=== PATIENT | female | born 1960 | race Caucasian/White ===

== ENCOUNTER → 2016-04-05 | Outpatient (RCR) | payer SELFPAY | LOC: M PT 03-21 13:42 | PROVIDERS: ATTEND Orthopaedic Surgery | DX: S82.65XD Nondisplaced fracture of lateral malleolus of left fibula, subsequent encounter for closed fracture with routine healing (principal); X58.XXXD Exposure to other specified factors, subsequent encounter; Y93.9 Activity, unspecified; Y92.9 Unspecified place or not applicable; Y99.8 Other external cause status | CPT/HCPCS: 97010; 97110; 97140; 97161; G0283 ==

== ENCOUNTER → 2016-06-07 | Outpatient (REF) | payer OTHER ==
[2016-06-07 13:33] LABS: BASO % 0.4 % (0.0-1.0); EOS # 0.4 K/mm3 (0.0-0.50); EOS % 3.2 % (0.0-3.0); LARGE UNSTAINED CELL # 0.3 K/mm3 (0.0-0.4); LARGE UNSTAINED CELL % 2.5 % (0.0-4.0); LYMPH # 1.8 K/mm3 (1.5-4.5); LYMPH % 16.2 % (24.0-44.0); MEAN CORPUSCULAR HEMOGLOBIN 30.6 pg (27.0-33.0); MEAN CORPUSCULAR HGB CONC 33.5 g/dl (32.0-36.5); MEAN CORPUSCULAR VOLUME 91.5 fl (80.0-96.0); MONO # 0.6 K/mm3 (0.0-0.8); MONO % 5.1 % (0.0-5.0); NEUTROPHILS # 7.9 K/mm3 (1.8-7.7); NEUTROPHILS % 72.7 % (36.0-66.0); PLATELET COUNT, AUTOMATED 335 k/mm3 (150-450); RED CELL DISTRIBUTION WIDTH 13.1 % (11.5-14.5); WHITE BLOOD COUNT 10.9 K/mm3 (4.0-10.0)
[2016-06-07 14:01] LABS: ALBUMIN/GLOBULIN RATIO 1.03 (1.00-1.93); ALKALINE PHOSPHATASE 94 U/L (45-117); ALT/SGPT 15 U/L (12-78); ANION GAP 7 MEQ/L (8-16); AST/SGOT 14 U/L (15-37); BILIRUBIN,TOTAL 0.3 MG/DL (0.2-1.0); BLOOD UREA NITROGEN 12 MG/DL (7-18); CALCIUM LEVEL 9.4 MG/DL (8.5-10.1); CARBON DIOXIDE LEVEL 30 MEQ/L (21-32); CHLORIDE LEVEL 97 MEQ/L (98-107); CREATININE FOR GFR 0.92 MG/DL (0.55-1.02); FERRITIN 63 NG/ML (8-252); FREE T4 0.93 NG/DL (0.76-1.46); GLOMERULAR FILTRATION RATE > 60.0 (>51); GLUCOSE, FASTING 106 MG/DL (70-105); PERCENT SATURATION 11.3 % (13.2-37.4); POTASSIUM SERUM 4.3 MEQ/L (3.5-5.1); SODIUM LEVEL 134 MEQ/L (136-145); TOTAL IRON BINDING CAPACITY 381 UG/DL (250-450); TOTAL PROTEIN 7.9 GM/DL (6.4-8.2)
== END ==
LOC: M SFHCPLAZ 09:59
PROVIDERS: ATTEND Family Medicine
DX: N18.2 Chronic kidney disease, stage 2 (mild) (principal); E03.9 Hypothyroidism, unspecified; R73.01 Impaired fasting glucose

== ENCOUNTER → 2016-07-05 | Outpatient (CLI) | payer OTHER ==
--- NOTE | 2016-07-05 13:17 | REPMRS ---
Patient History The patient states she has not had a clinical breast exam in over a year. Patient is postmenopausal. Family history of breast cancer in maternal grandmother at age 50 or over and breast cancer in paternal grandmother at age 50 or over. Digital Woman Screen Mammo: July 05, 2016 - Exam #: [id number] Bilateral CC and MLO view(s) were taken. Technologist: Ayah Helton, Technologist Prior study comparison: March 24, 2014, digital woman screen mammo performed at [facility]. July 04, 2012, digital woman screen mammo performed at [facility]. FINDINGS: There are scattered fibroglandular densities. There has been no change in the appearance of the mammogram from the prior studies. There is a mild amount of residual fibroglandular tissue which is fairly symmetric. There is no interval development of dominant mass, architectural distortion, or clustered microcalcification suggestive of malignancy. ASSESSMENT: BI-RADS/ACR category 1 mammogram. Negative. Recommendation Routine screening mammogram in 1 year (for women over age 40). This mammogram was interpreted with the aid of an FDA-approved computer-aided dectection system. Electronically Signed By: Dean Herrera MD 07/05/16 [id number]
== END ==
LOC: M WHC 10:04
PROVIDERS: ATTEND Family Medicine
DX: Z12.31 Encounter for screening mammogram for malignant neoplasm of breast (principal)

== ENCOUNTER → 2016-07-30 | Outpatient (CLI) | payer OTHER ==
--- NOTE | 2016-07-31 07:06 | REP ---
RIGHT KNEE COMPLETE: 07/30/2016. COMPARISON: Bilateral knee 10/25/2011. CLINICAL HISTORY: Acute pain. FINDINGS: Five views were provided. There are spurs in the tibial spines, medial and lateral joint margins without joint space narrowing. [place] view shows slight narrowing at the patellofemoral joint. There is soft tissue calcification superficially in the popliteal fossa unrelated to the joint. There is no fracture, loose body or osteochondral lesion. IMPRESSION: 1. There are tricompartment osteoarthritic changes with some narrowing of the patellofemoral joint but no definite joint effusion, fracture, loose body or other acute finding. Signed by Howard Pedro MD 07/31/2016 09:29 A
== END ==
LOC: M LRY 14:53
PROVIDERS: ATTEND Physician Assistant
DX: M25.561 Pain in right knee (principal); M17.11 Unilateral primary osteoarthritis, right knee

== ENCOUNTER → 2017-06-21 | Outpatient (REF) | payer OTHER | LOC: M SFHCLERA 14:44 | DX: J00 Acute nasopharyngitis [common cold] (principal) ==

== ENCOUNTER → 2017-06-28 | Outpatient (CLI) | payer OTHER | LOC: M LRY 13:00 | DX: R06.02 Shortness of breath (principal) | CPT/HCPCS: 71046 ==

== ENCOUNTER → 2017-07-02 | Outpatient (REF) | payer OTHER | LOC: M SFHCLERA 10:47 | DX: R30.0 Dysuria (principal) ==

== ENCOUNTER → 2017-08-22 | Outpatient (CLI) | payer OTHER ==
[2017-08-22 17:00] LABS: BASO % 0.5 % (0.0-1.0); EOS # 0.2 10^3/uL (0.0-0.50); EOS % 2.9 % (0.0-3.0); HEMATOCRIT 37.7 % (36.0-47.0); HEMOGLOBIN 12.4 g/dl (12.0-15.5); IMMATURE GRANULOCYTE % 0.3 % (0-3.0); LYMPH # 2.1 10^3/uL (1.5-4.5); MEAN CORPUSCULAR HEMOGLOBIN 28.6 pg (27.0-33.0); MEAN CORPUSCULAR HGB CONC 32.9 g/dl (32.0-36.5); MEAN CORPUSCULAR VOLUME 86.9 fl (80.0-96.0); MONO # 0.5 10^3/uL (0.0-0.8); MONO % 7.5 % (0.0-5.0); NEUTROPHILS # 3.5 10^3/uL (1.8-7.7); NEUTROPHILS % 55.8 % (36.0-66.0); PLATELET COUNT, AUTOMATED 317 10^3/uL (150-450); RED BLOOD COUNT 4.34 10^6/uL (4.00-5.40); RED CELL DISTRIBUTION WIDTH 13.2 % (11.5-14.5); RETIC HEMOGLOBIN EQUIVALENT 32.8 pg (24-36); RETICULOCYTE # 64.7 10^9/L (17-77); RETICULOCYTE % 1.5 % (0.5-1.5); WHITE BLOOD COUNT 6.2 10^3/uL (4.0-10.0)
[2017-08-22 17:33] LABS: ESTIMATED AVERAGE GLUCOSE 137 MG/DL (60-110); HEMOGLOBIN A1c 6.4 %; PTH INTACT 54.8 PG/ML (18.5-88.0); TOTAL 25(OH) VITAMIN D 70.6 NG/ML (30.0-100.0); VITAMIN B12 LEVEL > 2000 PG/ML (247-911)
[2017-08-22 17:36] LABS: ALBUMIN 3.5 GM/DL (3.2-5.2); ALKALINE PHOSPHATASE 81 U/L (45-117); ALT/SGPT 18 U/L (12-78); ANION GAP 7 MEQ/L (8-16); AST/SGOT 15 U/L (7-37); BILIRUBIN,TOTAL 0.3 MG/DL (0.2-1.0); BLOOD UREA NITROGEN 12 MG/DL (7-18); C REACTIVE PROTEIN QUANTITATIV 0.69 MG/DL (0.00-0.30); CALCIUM LEVEL 8.9 MG/DL (8.5-10.1); CARBON DIOXIDE LEVEL 29 MEQ/L (21-32); CHLORIDE LEVEL 101 MEQ/L (98-107); CHOLESTEROL LEVEL 144 MG/DL (<200); CHOLESTEROL RISK RATIO 3.272 (<5); CPK CREATINE PHOSPHOKINASE 106 U/L (26-192); CREATININE FOR GFR 0.88 MG/DL (0.55-1.30); FREE T4 1.29 NG/DL (0.76-1.46); GLOMERULAR FILTRATION RATE > 60.0 (>51); GLUCOSE, FASTING 97 MG/DL (70-100); HDL CHOLESTEROL 44 MG/DL (>40); LDL CHOLESTEROL 76.6 MG/DL (<100); NON-HDL-C 100 MG/DL; SODIUM LEVEL 137 MEQ/L (136-145); THYROID STIMULATING HORMONE 0.222 uIU/ML (0.358-3.740); TOTAL PROTEIN 7.4 GM/DL (6.4-8.2); TRIGLYCERIDES LEVEL 117 MG/DL (<150)
[2017-08-25 00:37] LABS: INSULIN LEVEL 28.2 uIU/mL (2.6-24.9)
== END ==
LOC: M WUC 13:26
DX: E53.8 Deficiency of other specified B group vitamins (principal); E78.5 Hyperlipidemia, unspecified; E03.9 Hypothyroidism, unspecified; R73.01 Impaired fasting glucose; E55.9 Vitamin D deficiency, unspecified
CPT/HCPCS: 82550

== ENCOUNTER → 2018-04-06 | Outpatient (CLI) | payer OTHER ==
--- NOTE | 2018-04-06 14:41 | REP ---
CERVICAL SPINE EIGHT VIEWS: HISTORY: Spondylosis. There is no acute fracture. The C3-4 through C5-6 intervertebral discs are decreased in height consistent with disc degeneration. Osteophytes are present on C5 and C6. The neural foramina are patent. There are 2 mm of anterior subluxation of C4 on C5. This is unchanged with flexion and extension. There are 2 mm of anterior subluxation of C3 on C4 with flexion. This is not seen in neutral or extension radiographs. IMPRESSION: Degenerative change as described above. Electronically Signed by Jhonathan Torres MD 04/06/2018 02:44 P
[2018-04-06 16:50] LABS: AMORPHOUS SEDIMENT SMALL (NEGATIVE); APPEARANCE, URINE HAZY (CLEAR); BACTERIA, URINE AUTO NEGATIVE (NEGATIVE); BILIRUBIN, URINE AUTO NEGATIVE (NEGATIVE); BLOOD, URINE BLOOD NEGATIVE (NEGATIVE); COLOR, URINE YELLOW (YELLOW); GLUCOSE, URINE (UA) AUTO NEGATIVE (NEGATIVE); KETONE, URINE AUTO NEGATIVE (NEGATIVE); LEUKOCYTE ESTERASE, URINE AUTO 3+ (NEGATIVE); NITRITE, URINE AUTO NEGATIVE (NEGATIVE); PROTEIN, URINE AUTO NEGATIVE (NEGATIVE); RBC, URINE AUTO 2 /HPF (0-3); SPECIFIC GRAVITY URINE AUTO 1.013 (1.002-1.035); SQUAMOUS EPITHELIAL CELL UR AU 7 /HPF (0-6); TRANSITIONAL EPITHELIAL AUTO 3 /HPF; UROBILINOGEN, URINE AUTO 0.2 mg/dL (0.0-2.0); WBC, URINE AUTO 92 /HPF (0-3)
[2018-04-06 16:52] LABS: BASO % 0.6 % (0.0-1.0); EOS # 0.2 10^3/uL (0.0-0.50); EOS % 3.4 % (0.0-3.0); HEMOGLOBIN 12.9 g/dl (12.0-15.5); LYMPH % 30.7 % (24.0-44.0); MEAN CORPUSCULAR HEMOGLOBIN 29.1 pg (27.0-33.0); MEAN CORPUSCULAR HGB CONC 33.1 g/dl (32.0-36.5); MEAN CORPUSCULAR VOLUME 87.8 fl (80.0-96.0); MONO # 0.5 10^3/uL (0.0-0.8); MONO % 7.2 % (0.0-5.0); NEUTROPHILS # 3.7 10^3/uL (1.8-7.7); NEUTROPHILS % 57.8 % (36.0-66.0); PLATELET COUNT, AUTOMATED 352 10^3/uL (150-450); RED BLOOD COUNT 4.44 10^6/uL (4.00-5.40); WHITE BLOOD COUNT 6.4 10^3/uL (4.0-10.0)
[2018-04-06 17:09] LABS: HEMOGLOBIN A1c 6.3 %
[2018-04-06 17:20] LABS: CREATININE, URINE 79.1 MG/DL; MALB URINE SIEMENS 24.5 MG/L; MAU/CREAT RATIO 30.9 MCG/MG (0.0-30.0)
[2018-04-06 17:29] LABS: ALBUMIN 3.7 GM/DL (3.2-5.2); BILIRUBIN,TOTAL 0.3 MG/DL (0.2-1.0); CALCIUM LEVEL 8.9 MG/DL (8.8-10.2); CREATININE FOR GFR 1.02 MG/DL (0.55-1.30); FREE T4 1.08 NG/DL (0.76-1.46); GLOMERULAR FILTRATION RATE 58.8 (>45); MAGNESIUM LEVEL 2.3 MG/DL (1.8-2.4); POTASSIUM SERUM 4.8 MEQ/L (3.5-5.1); THYROID STIMULATING HORMONE 2.12 uIU/ML (0.358-3.740); TOTAL PROTEIN 7.4 GM/DL (6.4-8.2)
[2018-04-11 14:15] LABS: CODEINE CONFIRM >10000 ng/mL (Cutoff=100); CODEINE, URINE Positive (.); CREATININE, URINE 79.6 mg/dL (20.0-300.0); HYDROCODONE, URINE Negative (Cutoff=100); HYDROMORPHONE, URINE Negative (Cutoff=100); MORPHINE CONFIRM, URINE 1261 ng/mL (Cutoff=100); MORPHINE, URINE Positive (.); OPIATES, URINE Positive ng/mL (Cutoff=300)
== END ==
LOC: M WUC 11:53
PROVIDERS: ATTEND Family Medicine
DX: M50.31 Other cervical disc degeneration, high cervical region (principal); M50.322 Other cervical disc degeneration at C5-C6 level; M25.78 Osteophyte, vertebrae; D50.9 Iron deficiency anemia, unspecified; I10 Essential (primary) hypertension; E03.9 Hypothyroidism, unspecified; R73.01 Impaired fasting glucose; M47.22 Other spondylosis with radiculopathy, cervical region

== ENCOUNTER → 2018-06-11 | Outpatient (CLI) | payer OTHER ==
--- NOTE | 2018-06-11 13:42 | REP ---
MRI CERVICAL SPINE WITHOUT CONTRAST: HISTORY: Cervical spondylosis. Radiculopathy. Comparison cervical spine radiographs are from April 06, 2018. TECHNIQUE: Sagittal and axial T1- and T2-weighted scans are acquired in the usual fashion with and without fat saturation. Sequences include spin echo, turbo spin echo, and STIR imaging sequences. MRI FINDINGS: There is straightening of the normal cervical lordosis. There is a subtle degenerative 2 mm spondylolisthesis at C4-5. Degenerative disc disease is seen at this level as well as at C5-6 and C6-7. Cortical and medullary bone signal intensity are normal. Vertebral body heights are preserved. Alignment is otherwise normal. Cervical cord is normal in coarse, caliber and signal intensity on T1- and T2-weighted scans. There is no visible extra vertebral abnormality. Axial and sagittal images taken at the C2-3 level demonstrate mild central disc bulging without the cord compression. No neural foraminal narrowing is seen. At C3-C4, there is no significant finding. At C4-5, there is 2 mm anterolisthesis due to degenerative disc narrowing. Mild disc bulging is seen without cord compression or central canal stenosis. No neural foraminal narrowing is seen. At C5-C6, there is broad-based central disc protrusion subtly flattening the ventral margin of the cervical cord. No central canal stenosis is seen. There is mild uncovertebral spurring on the left. At C5-6, there is mild diffuse disc bulging. Neural foramen are adequate no central canal stenosis seen. At C7-T1, there is no significant finding. IMPRESSION: Degenerative disc changes most pronounced at C4-5 and C5-6. At C5-6, there is a broad-based central disc protrusion flattening the ventral margin of the cord. At C4-5, there is a 2 mm spondylolisthesis due to degenerative disc disease. Electronically Signed by Arvin Silvestre MD 06/11/2018 02:33 P
== END ==
LOC: M RAD 11:03
PROVIDERS: ATTEND Nurse Practitioner Family
DX: M47.22 Other spondylosis with radiculopathy, cervical region (principal); M50.222 Other cervical disc displacement at C5-C6 level

== ENCOUNTER → 2018-09-05 | Outpatient (REF) | payer OTHER ==
[~2018-09-05] MED LIST: ACET-683 PO; ACET1TAB16 PO; AMIT75TA PO; AMLO10TA5 PO; GABA-1171 PO; HYDR25TAB PO; LEVO75TA4 PO; LINE1TAB6 PO; LISI40TA PO; ONDA4TAB6 PO; SIMVPOW2; SULF1TAB93 PO; VITA500045 PO; ZOCO80TA PO
== END ==
LOC: M SFHCPLAZ 15:50
PROVIDERS: ATTEND Nurse Practitioner Family
DX: L03.112 Cellulitis of left axilla (principal)

== ENCOUNTER 2018-09-06 22:10 | Emergency (ER) | payer OTHER ==
[~2018-09-06] VITALS: Ht 160 cm; Wt 104.1 kg
[2018-09-06] MEDS ORDERED: AMIT75TA PO (22:20)
[2018-09-06] MEDS ORDERED: LISI40TA PO (22:20)
[2018-09-06] MEDS ORDERED: HYDR25TAB PO (22:20)
[2018-09-06] MEDS ORDERED: SIMVPOW2 (22:20)
[2018-09-06] MEDS ORDERED: SULF1TAB93 PO (22:20)
[2018-09-06] MEDS ORDERED: AMLO10TA5 PO (22:20)
[2018-09-06] MEDS ORDERED: ACET1TAB16 PO (22:20)
[2018-09-06] MEDS ORDERED: VITA500045 PO (22:20)
[2018-09-06] MEDS ORDERED: GABA-1171 PO (22:20)
[2018-09-06] MEDS ORDERED: ACET-683 PO (22:20)
[2018-09-06] MEDS ORDERED: LEVO75TA4 PO (22:20)
[2018-09-07] MEDS ORDERED: METOCLOPRAMIDE INJ 10MG/2ML VIAL (J2765) IV ONE ×2 (00:30→02:00)
[2018-09-07] MEDS ORDERED: diphenhydrAMINE INJ 50MG/ML VIAL (J1200) IV ONE ×2 (00:30→02:00)
[2018-09-07] MEDS ORDERED: NS 1,000 ML IV ONE (00:30)
[2018-09-07] MEDS ORDERED: KETOROLAC 30 MG/ML VIAL (J1885) IV ONE (00:30)
[2018-09-07 00:42] LABS: BASO % 0.3 % (0.0-1.0); HEMATOCRIT 36.7 % (36.0-47.0); HEMOGLOBIN 12.5 g/dl (12.0-15.5); LYMPH # 0.5 10^3/uL (1.5-4.5); LYMPH % 4.6 % (24.0-44.0); MEAN CORPUSCULAR HEMOGLOBIN 29.1 pg (27.0-33.0); MEAN CORPUSCULAR HGB CONC 34.1 g/dl (32.0-36.5); MEAN CORPUSCULAR VOLUME 85.3 fl (80.0-96.0); MONO # 0.4 10^3/uL (0.0-0.8); NEUTROPHILS # 10.6 10^3/uL (1.8-7.7); NEUTROPHILS % 91.5 % (36.0-66.0); PLATELET COUNT, AUTOMATED 329 10^3/uL (150-450); WHITE BLOOD COUNT 11.6 10^3/uL (4.0-10.0)
[2018-09-07 01:06] LABS: ALBUMIN 3.4 GM/DL (3.2-5.2); BILIRUBIN,TOTAL 0.3 MG/DL (0.2-1.0); CALCIUM LEVEL 8.9 MG/DL (8.8-10.2); CREATININE FOR GFR 1.04 MG/DL (0.55-1.30); GLOMERULAR FILTRATION RATE 57.5 (>45); POTASSIUM SERUM 3.4 MEQ/L (3.5-5.1); TOTAL PROTEIN 7.6 GM/DL (6.4-8.2)
[2018-09-07] MEDS ORDERED: methylPREDNISolone INJ 125 MG/2 ML VIAL (J2930) IV ONE (02:00)
[2018-09-07] MEDS ORDERED: ONDA4TAB6 PO (04:21)
[2018-09-07 04:33] VITALS: BP 97/54
== END 2018-09-07 04:34 | disposition home or self-care (01) ==
LOC: M ED 22:10
DX: L73.2 Hidradenitis suppurativa (principal); G43.909 Migraine, unspecified, not intractable, without status migrainosus; I10 Essential (primary) hypertension; E03.9 Hypothyroidism, unspecified; Z79.899 Other long term (current) drug therapy; Z79.890 Hormone replacement therapy; Z87.891 Personal history of nicotine dependence
CPT/HCPCS: 80053; 83605; 85025; 87040; 96361; 96374; 96375; 96376; 99284; J1200; J1885; J2765; J2930

== ENCOUNTER 2018-09-10 11:07 | Inpatient (IN) | payer OTHER ==
[~2018-09-10] VITALS: Ht 160 cm; Wt 102.9 kg
[2018-09-10] MEDS: DIVALPROEX 500MG *ER* TAB PO SCH ×2 (09:00→20:49)
[~2018-09-10 11:07] MED LIST changes: -LINE1TAB6 PO; -ZOCO80TA PO
[2018-09-10 12:10] VITALS: BP 139/81
[2018-09-10] MEDS ORDERED: KETOROLAC 30 MG/ML VIAL (J1885) IV ONE (12:30)
[2018-09-10 12:32] LABS: HEMATOCRIT 39.6 % (36.0-47.0); HEMOGLOBIN 13.5 g/dl (12.0-15.5); MEAN CORPUSCULAR HEMOGLOBIN 29.3 pg (27.0-33.0); MEAN CORPUSCULAR HGB CONC 34.1 g/dl (32.0-36.5); MEAN CORPUSCULAR VOLUME 86.1 fl (80.0-96.0); PLATELET COUNT, AUTOMATED 335 10^3/uL (150-450); WHITE BLOOD COUNT 10.3 10^3/uL (4.0-10.0)
[2018-09-10] MEDS ORDERED: ZOCO80TA PO (12:33)
[2018-09-10] MEDS ORDERED: ONDA4TAB6 PO (12:33)
[2018-09-10 12:55] LABS: ALBUMIN 3.5 GM/DL (3.2-5.2); ALT/SGPT 49 U/L (12-78); BILIRUBIN,TOTAL 0.3 MG/DL (0.2-1.0); BLOOD UREA NITROGEN 14 MG/DL (7-18); CALCIUM LEVEL 9.1 MG/DL (8.8-10.2); CARBON DIOXIDE LEVEL 29 MEQ/L (21-32); CHLORIDE LEVEL 94 MEQ/L (98-107); CREATININE FOR GFR 1.14 MG/DL (0.55-1.30); GLOMERULAR FILTRATION RATE 51.8 (>45); GLUCOSE, FASTING 104 MG/DL (70-100); POTASSIUM SERUM 3.5 MEQ/L (3.5-5.1); SODIUM LEVEL 131 MEQ/L (136-145); TOTAL PROTEIN 7.9 GM/DL (6.4-8.2)
--- NOTE | 2018-09-10 13:47 | REP ---
CT HEAD WITHOUT CONTRAST: Migraine headache. There is no intraparenchymal hemorrhage, mass or midline shift. The ventricular system is normal in appearance. There is no extracerebral collection. The visualized sinuses are clear. IMPRESSION: There is no intracranial lesion. Electronically Signed by Jhonathan Torres MD 09/10/2018 02:00 P
--- NOTE | 2018-09-10 14:29 | PHACANCOPD ---
PHARMACY VANCOMYCIN DOSING Pt Demographics Demographics Patient Age:58 , Weight:103.200 , Gender: female Adjusted Body Weight Date: 09/10/18, Adjusted Body Weight: Kg Events Past 24 Hours Events Past 24 Hours: YES: Change in CrCl, Fever, Elevation in WBC; NO: Dialysis, Diuretic Therapy, Pending Diagnostics, Pending Procedures, Other Vancomycin Vancomycin Target Ranges: 10-20 mcg/ml Vancomycin Load Y/N: Yes Load Dose Date Time Vancomycin Load Dose: 2G Date: 09/10/18 Time: 1600 Vancomycin Dose Date: 09/10/18. Current Vancomycin Dose: Intermittent Dosing?: No Labs Labs Vital Signs Label Value Date Time Patient Temperature 99.3 degrees F 09/10/18 1210 Temperature Source Temporal 09/10/18 1210 Item Value Date Time White Blood Count 10.3 10^3/uL H 09/10/18 1218 Creatinine 1.14 MG/DL 09/10/18 1218 Micro Microbiology 09/10/18 Blood Culture, Received Pending Creatinine Clearance Date:09/10/18. Creatinine Clearance: . Assessment and Plan Maintaining Current Dose?: Yes Reason for dose change: No Dose Change Pharmacist Note Pharmacist Note Date: 09/10/18. Pharmacist note: Pt. is a 58 year old female who was recently seen for an abscess under her left axillae. She was prescribed bactrim and then discharged. Lab cultures from 09/05/18 have returned back as MRSA. Pt. has returned today as a direct admit to PCU. SCr is slightly elevated at 1.14, baseline Scr is ~0.9. This patient has not received vanco at our facility. I have loaded the patient with Vanco 2G IVx1 @1600 today followed by Vanco 1500mg IV Q18H. We will continue to monitor and adjust dose as needed. KIRILL TORRES [facility]ARMAC[facility] Sep 10, 2018 14:29
[2018-09-10 15:15] LABS: CK-MB VALUE MASS < 1.0 NG/ML (<3.6); CPK CREATINE PHOSPHOKINASE 64 U/L (26-192); MB/CK RELATIVE INDEX 1.56 (< OR =4); TROPONIN I < 0.02 NG/ML (< 0.10)
[2018-09-10 15:32] VITALS: BP 102/59
[2018-09-10] MEDS ORDERED: SLF 3 ML SYR IV PRN (16:00)
[2018-09-10] MEDS: VANCOMYCIN HCL 1,000 MG, VIAL MATE ADAPTER 1 EACH in D5W 250 ML IV SCH ×2 (16:05→17:41)
[2018-09-10] MEDS: METOCLOPRAMIDE 10 MG TAB PO SCH ×2 (16:05→21:27)
[2018-09-10] MEDS: ASPIRIN 81 MG ENTERIC TAB PO SCH (16:05)
[2018-09-10] MEDS: MORPHINE 4 MG/ML 1ML VIAL/SYRINGE (J2270) IV PRN ×2 (17:20→21:27)
[2018-09-10] MEDS: HumaLOG INSULIN (NovoLOG) PER UNIT SC SCH ×2 (17:26→20:48)
[2018-09-10 20:00] VITALS: BP 122/74
[2018-09-10] MEDS: DOCUSATE SODIUM 100 MG CAP PO SCH (20:49)
[2018-09-10] MEDS: SIMVASTATIN 40 MG TAB PO SCH (20:49)
[2018-09-10] MEDS: GABAPENTIN 100 MG CAP PO SCH (20:49)
[2018-09-10] MEDS: AMITRIPTYLINE 25 MG TAB PO SCH (20:49)
[2018-09-10] MEDS: SLF 3 ML SYR IV SCH (21:28)
[2018-09-10 23:59] VITALS: BP 101/59
[2018-09-11 04:00] VITALS: BP 104/61
[2018-09-11] MEDS: SLF 3 ML SYR IV SCH ×3 (05:31→20:55)
[2018-09-11] MEDS: LEVOTHYROXINE 75MCG TABLET (0.075MG) PO SCH (05:31)
[2018-09-11] MEDS: METOCLOPRAMIDE 10 MG TAB PO SCH ×3 (05:31→20:54)
[2018-09-11 06:39] LABS: HEMATOCRIT 34.1 % (36.0-47.0); HEMOGLOBIN 11.6 g/dl (12.0-15.5); MEAN CORPUSCULAR HEMOGLOBIN 28.5 pg (27.0-33.0); MEAN CORPUSCULAR VOLUME 83.8 fl (80.0-96.0); PLATELET COUNT, AUTOMATED 355 10^3/uL (150-450); RED BLOOD COUNT 4.07 10^6/uL (4.00-5.40); WHITE BLOOD COUNT 9.3 10^3/uL (4.0-10.0)
[2018-09-11 07:12] LABS: CALCIUM LEVEL 8.5 MG/DL (8.8-10.2); CREATININE FOR GFR 1.11 MG/DL (0.55-1.30); GLOMERULAR FILTRATION RATE 53.4 (>45); POTASSIUM SERUM 3.1 MEQ/L (3.5-5.1)
[2018-09-11 07:13] LABS: ALBUMIN 2.8 GM/DL (3.2-5.2); BILIRUBIN,TOTAL 0.3 MG/DL (0.2-1.0); MAGNESIUM LEVEL 2.7 MG/DL (1.8-2.4); TOTAL PROTEIN 7.2 GM/DL (6.4-8.2)
[2018-09-11] MEDS: HumaLOG INSULIN (NovoLOG) PER UNIT SC SCH ×4 (07:30→20:44)
--- NOTE | 2018-09-11 07:35 | IPNPDOC ---
Subjective Date Seen The patient was seen on 09/11/18. Subjective Chief Complaint/HPI Admitted for left axillary abscess, intractable migraine, CP and TRAN. patient states she feels better today. echo completed. CXR, EKG, Cardiac enzymes negative. Denies TRAN with a ambulating to bathroom. + for MRSA to axillary wound. Constitutional: Denies: Chills, Fever, Night Sweats Pulmonary: Denies: Dyspnea, Cough Cardiovascular: Denies: Chest Pain, Palpitations, Orthopnea, Paroxysmal Noc. Dyspnea, Lt Headedness Gastrointestinal: Denies: Nausea, Vomiting, Abdominal Pain, Diarrhea, Constipation Psych: Reports: Mood Normal; Denies: Depression, Memory Issues Objective Physical Examination General Exam: Positive: Alert, No Acute Distress, Other (blocking light due to JOY) Chest Exam: Positive: Clear to auscultation, Normal air movement Heart Exam: Positive: Rate Normal, Regular Rhythm, Normal S1, Normal S2; Negative: Murmurs, Rubs Telemetry: Positive: No significant arrhythmia Extremity Exam: Positive: Normal pulses; Negative: Clubbing, Cyanosis, Edema Psych Exam: Positive: Mental status NL, Mood NL, Oriented x 3 Assessment /Plan Problems (1) MRSA (methicillin resistant staph aureus) culture positive Status: Acute Problem Text: D2 vanco (failed outpx po Bactrim DS)-plan dc on linez 09/10/18 BCX1 NG 09/11 decontamination regimen (2) Chest pain Status: Resolved Problem Text: No recurrent CP - CIP/T-I 09/10 TTE read P 09/11 CTA - plan outpx NST (3) Status migrainosus Status: Acute Response to Treatment: Improving Problem Text: status 09/11 + DVP load, continue HD ami, +carve, Fiorcet prn defer triptan given possible cardiogenic CP (4) Hypertension Status: Chronic Problem Text: 09/11 SBP 100-105; therefore, held HD amlo 10 (which can worsen JOY) and HCTZ 25 (K 3.1-replaced by po), +carve Plan/VTE VTE Prophylaxis Ordered?: Yes (enoxeparin) VS, I&O, 24H, Fishbone Vital Signs/I&O Vital Signs Date Time Temp Pulse Resp B/P (MAP) Pulse Ox O2 Delivery O2 Flow Rate FiO2 09/11/18 04:00 97.8 86 16 104/61 (34) 92 I&O- Last 24 Hours up to 6 AM 09/11/18 06:00 Intake Total 860 ml Output Total 300 ml Balance 560 ml Laboratory Data 24H LABS Laboratory Tests 2 09/10/18 12:18: Nucleated Red Blood Cells % (auto) 0.0, Anion Gap 8, Glomerular Filtration Rate 51.8, Lactic Acid Level 1.2, Blood Urea Nitrogen 14, Creatinine 1.14, Sodium Level 131L, Potassium Level 3.5, Chloride Level 94L, Carbon Dioxide Level 29, Calcium Level 9.1, Aspartate Amino Transf (AST/SGOT) 53H, Alanine Aminotransferase (ALT/SGPT) 49, Total Creatine Kinase 64, Alkaline Phosphatase 161H, Total Bilirubin 0.3, Total Protein 7.9, Albumin 3.5, Creatine Kinase MB < 1.0, Creatine Kinase MB Relative Index 1.56, Troponin I < 0.02, Albumin/Globulin Ratio 0.80L 09/10/18 17:18: Bedside Glucose (Misc Panel) 103 09/10/18 20:47: Bedside Glucose (Misc Panel) 80 09/11/18 05:23: Nucleated Red Blood Cells % (auto) 0.0, Anion Gap 9, Glomerular Filtration Rate 53.4, Lactic Acid Level 0.7, Blood Urea Nitrogen 15, Creatinine 1.11, Sodium Level 132L, Potassium Level 3.1L, Chloride Level 96L, Carbon Dioxide Level 27, Calcium Level 8.5L, Aspartate Amino Transf (AST/SGOT) 37, Alanine Aminotransferase (ALT/SGPT) 42, Alkaline Phosphatase 151H, Total Bilirubin 0.3, Total Protein 7.2, Albumin 2.8L, Albumin/Globulin Ratio 0.64L, Magnesium Level 2.7H CBC/BMP Laboratory Tests 09/10/18 12:18 Red Blood Count 4.60, Mean Corpuscular Volume 86.1, Mean Corpuscular Hemoglobin 29.3, Mean Corpuscular Hemoglobin Concent 34.1, Red Cell Distribution Width 12.9, Calcium Level 9.1, Aspartate Amino Transf (AST/SGOT) 53 H, Alanine Aminotransferase (ALT/SGPT) 49, Total Creatine Kinase 64, Alkaline Phosphatase 161 H, Total Bilirubin 0.3, Total Protein 7.9, Albumin 3.5 09/11/18 05:23 Red Blood Count 4.07, Mean Corpuscular Volume 83.8, Mean Corpuscular Hemoglobin 28.5, Mean Corpuscular Hemoglobin Concent 34.0, Red Cell Distribution Width 13.0, Calcium Level 8.5 L, Aspartate Amino Transf (AST/SGOT) 37, Alanine Aminotransferase (ALT/SGPT) 42, Alkaline Phosphatase 151 H, Total Bilirubin 0.3, Total Protein 7.2, Albumin 2.8 L Microbiology Microbiology 09/10/18 Blood Culture, Received Pending Sendy Morton Sep 11, 2018 07:35 Irineo Gonzalez M.D. Sep 11, 2018 08:42
[2018-09-11 08:00] VITALS: BP 108/68
[2018-09-11] MEDS ORDERED: ISOVUE-370 76% 100ML VIAL (Q9967) As Ordered ONE (08:00)
[2018-09-11] MEDS ORDERED: FIORICET TAB PO PRN (08:00)
[2018-09-11] MEDS ORDERED: POTASSIUM CHLORIDE 10 MEQ SR TABLET PO ONE (08:45)
--- NOTE | 2018-09-11 08:54 | REP ---
Clinical: Chest pain . Comparison: 06/28/2017 . Technique: PA and lateral. Findings: The mediastinum and cardiac silhouette are normal. The lung yang are clear and without acute consolidation, effusion, or pneumothorax. The skeletal structures are intact and normal. Impression: 1. No acute cardiopulmonary process. Electronically Signed by Terence Lyn MD 09/11/2018 08:45 A
--- NOTE | 2018-09-11 08:59 | REP ---
Clinical: Acute chest pain and dyspnea on exertion. Technique: Axial contrast enhanced images from the thoracic inlet to the upper abdomen using 100 ml Isovue 370 intravenous contrast material with coronal and sagittal re-formations. Findings: Satisfactory enhancement of the pulmonary vasculature is achieved and no filling defects are identified to suggest pulmonary embolus. Thoracic aorta is normal caliber without aneurysm or dissection. Atherosclerotic changes to the descending thoracic aorta noted. Heart and pericardium are normal. Bilateral lung yang demonstrate very subtle scattered areas of ground-glass opacity which may reflect a mild bronchitis. No focal consolidation. No nodule or mass lesion. No pleural effusion/reaction. No pneumothorax. No adenopathy. Impression: No evidence for pulmonary embolus. Cannot exclude a mild bronchitis. Electronically Signed by Terence Lyn MD 09/11/2018 08:50 A
[2018-09-11] MEDS ORDERED: hydroCHLOROthiazide 25 MG TAB PO SCH (09:00)
[2018-09-11] MEDS: ENOXAPARIN 40 MG/0.4 ML SYRINGE (J1650) SC SCH (09:00)
[2018-09-11] MEDS ORDERED: amLODIPine 10 MG TAB PO SCH (09:00)
[2018-09-11] MEDS: DIVALPROEX 500MG *ER* TAB PO SCH ×2 (09:23→20:53)
[2018-09-11] MEDS: ASPIRIN 81 MG ENTERIC TAB PO SCH (09:23)
[2018-09-11] MEDS: DOCUSATE SODIUM 100 MG CAP PO SCH ×2 (09:24→20:53)
[2018-09-11] MEDS: CARVedilol 3.125 MG TAB PO SCH ×2 (09:24→20:55)
[2018-09-11] MEDS: VANCOMYCIN HCL 1,000 MG, VIAL MATE ADAPTER 1 EACH in D5W 250 ML IV SCH (09:25)
[2018-09-11] MEDS: VANCOMYCIN HCL 500 MG in D5W MINI-BAG PLUS 100 ML IV SCH (10:42)
[2018-09-11 12:00] VITALS: BP 99/55
[2018-09-11 16:00] VITALS: BP 99/58
[2018-09-11 20:00] VITALS: BP 106/63
[2018-09-11] MEDS: GABAPENTIN 100 MG CAP PO SCH (20:52)
[2018-09-11] MEDS: AMITRIPTYLINE 25 MG TAB PO SCH (20:54)
[2018-09-11] MEDS: SIMVASTATIN 40 MG TAB PO SCH (20:54)
[2018-09-11 23:59] VITALS: BP 93/51
[2018-09-12 04:00] VITALS: BP 98/66
[2018-09-12] MEDS: VANCOMYCIN HCL 1,000 MG, VIAL MATE ADAPTER 1 EACH in D5W 250 ML IV SCH (04:30)
[2018-09-12] MEDS: VANCOMYCIN HCL 500 MG in D5W MINI-BAG PLUS 100 ML IV SCH (05:34)
[2018-09-12] MEDS: METOCLOPRAMIDE 10 MG TAB PO SCH ×2 (05:34→13:04)
[2018-09-12] MEDS: SLF 3 ML SYR IV SCH ×2 (05:34→13:05)
[2018-09-12] MEDS: LEVOTHYROXINE 75MCG TABLET (0.075MG) PO SCH (05:34)
[2018-09-12 05:45] LABS: BASO % 0.6 % (0.0-1.0); EOS # 0.4 10^3/uL (0.0-0.50); EOS % 6.3 % (0.0-3.0); HEMATOCRIT 33.2 % (36.0-47.0); HEMOGLOBIN 11.2 g/dl (12.0-15.5); LYMPH # 2.5 10^3/uL (1.5-4.5); LYMPH % 38.1 % (24.0-44.0); MEAN CORPUSCULAR HEMOGLOBIN 29.4 pg (27.0-33.0); MEAN CORPUSCULAR HGB CONC 33.7 g/dl (32.0-36.5); MEAN CORPUSCULAR VOLUME 87.1 fl (80.0-96.0); MONO # 0.5 10^3/uL (0.0-0.8); MONO % 7.8 % (0.0-5.0); NEUTROPHILS % 45.7 % (36.0-66.0); PLATELET COUNT, AUTOMATED 345 10^3/uL (150-450); RED BLOOD COUNT 3.81 10^6/uL (4.00-5.40); WHITE BLOOD COUNT 6.6 10^3/uL (4.0-10.0)
[2018-09-12 06:16] LABS: ALBUMIN 2.5 GM/DL (3.2-5.2); ALT/SGPT 36 U/L (12-78); BILIRUBIN,TOTAL 0.2 MG/DL (0.2-1.0); BLOOD UREA NITROGEN 14 MG/DL (7-18); CALCIUM LEVEL 8.6 MG/DL (8.8-10.2); CARBON DIOXIDE LEVEL 28 MEQ/L (21-32); CHLORIDE LEVEL 101 MEQ/L (98-107); CREATININE FOR GFR 0.99 MG/DL (0.55-1.30); GLOMERULAR FILTRATION RATE > 60.0 (>45); GLUCOSE, FASTING 137 MG/DL (70-100); POTASSIUM SERUM 3.4 MEQ/L (3.5-5.1); SODIUM LEVEL 136 MEQ/L (136-145); TOTAL PROTEIN 6.8 GM/DL (6.4-8.2); VALPROIC ACID (DEPAKOTE) 71.3 UG/ML (50.0-100.0)
--- NOTE | 2018-09-12 06:48 | ECHO ---
DATE OF PROCEDURE: 09/11/2018 DATE OF : 1960 AGE: 58 REFERRING PHYSICIAN: Dr. Irineo Gonzalez PATIENT LOCATION: Room 3212 REASON FOR ECHOCARDIOGRAM: Chest pain. 2-D MEASUREMENTS: IVS: 1.0 cm LV: 4.3 cm LVPW: 0.9 cm LA: 3.9 cm Aorta: 2.7 cm IVC: 1.5 cm DOPPLER MEASUREMENTS: Peak velocity across the aortic valve: 1.7 m/s Peak velocity across the LVOT: 1.2 m/s Peak gradient across the aortic valve: 11 mmHg Mean gradient across the aortic valve: 5 mmHg Mitral E: 0.5 Mitral A: 0.7 Ratio: 0.7 Maximum tricuspid valve velocity: 2.1 m/s 2-D COMMENTS: 1. Normal left ventricular size, wall thickness, and normal global left ventricular systolic function. The estimated left ventricular systolic ejection fraction is 60-65%. 2. Normal left atrium. Normal right atrium and right ventricle. 3. The atrial septum appeared to be normal without evidence of defect or shunt. 4. Normal aortic root. 5. Echo free space noted anteriorly may represent a fat pad versus a trace to small pericardial effusion. 6. Mildly calcified aortic valve, leaflet excursion appeared to be normal. Normal mitral valve, tricuspid valve, and pulmonic valve. The proximal pulmonary artery branches were not well visualized. 7. The inferior vena cava was normal in size, central venous pressure is most likely normal. DOPPLER: Detects trace mitral regurgitation, trace tricuspid regurgitation. The calculated pulmonary artery systolic pressure was normal. Abnormal relaxation pattern was noted across the mitral valve leaflets as well as mitral valve annulus consistent with features of grade 1 left ventricular diastolic dysfunction. IMPRESSION: 1. Normal global left ventricular systolic function. There are features of left ventricular diastolic dysfunction, abnormal relaxation. 2. Aortic valve sclerosis with trivial aortic stenosis, but no aortic regurgitation. 3. Trace mitral regurgitation. 4. Trace tricuspid regurgitation with a normal calculated pulmonary artery systolic pressure. 5. Possible trace pericardial effusion versus a fat pad noted anteriorly to the left ventricle. Benign findings.
[2018-09-12] MEDS ORDERED: POTASSIUM CHLORIDE 10 MEQ SR TABLET PO ONE (07:30)
[2018-09-12] MEDS: HumaLOG INSULIN (NovoLOG) PER UNIT SC SCH ×2 (07:30→11:13)
--- NOTE | 2018-09-12 07:35 | REP ---
ULTRASOUND LEFT AXILLA: Real-time sonographic evaluation of the left axilla performed in an area of swelling and redness. There is soft tissue edema in this region. There are three separate hypoechoic areas in a subcutaneous location. One is located medially measuring 8 x 3 x 8 mm with possible internal air and tiny amount of fluid with an apparent tract to the skin surface. A second area is see more laterally measuring 9 x 4 x 5 mm, again possibly representing a tiny pocket of fluid. There is no sinus tract to the skin. The third area is the most lateral area seen and measures 11 x 4 x 4 mm. This may contain a very tiny amount of fluid. There does appear to be a tract to the skin surface. Electronically Signed by Dean Herrera MD 09/13/2018 12:16 A
[2018-09-12] MEDS ORDERED: LINE1TAB6 PO (07:48)
[2018-09-12 08:00] VITALS: BP 101/66
[2018-09-12] MEDS: ENOXAPARIN 40 MG/0.4 ML SYRINGE (J1650) SC SCH (08:05)
[2018-09-12] MEDS: ASPIRIN 81 MG ENTERIC TAB PO SCH (08:05)
[2018-09-12 08:06] VITALS: BP 101/66
[2018-09-12] MEDS: CARVedilol 3.125 MG TAB PO SCH (08:06)
[2018-09-12] MEDS: DIVALPROEX 500MG *ER* TAB PO SCH (08:06)
[2018-09-12] MEDS: DOCUSATE SODIUM 100 MG CAP PO SCH (08:06)
[2018-09-12] MEDS ORDERED: CHLORHEXIDINE GLUCONATE 0.12 % 15ML UDC (PERIDEX ORAL RINSE) SSP SCH (09:00)
[2018-09-12] MEDS ORDERED: MUPIROCIN 2% OINT 22 GM TUBE XX SCH (16:00)
--- NOTE | 2018-09-13 10:08 | DSES ---
DATE OF ADMISSION: 09/10/2018 DATE OF DISCHARGE: 09/12/2018 ATTENDING PHYSICIAN: Dr. Ken Rico PRIMARY CARE PHYSICIAN: Dr. Irineo Gonzalez HISTORY OF PRESENT ILLNESS: This is a 58-year-old female who presented to her primary care office for complaints of intractable migraine and axillary abscess with drainage which was not improving with Bactrim. The patient also had been complaining of some chest pain and shortness of breath. She was subsequently admitted to the family medicine service. HOSPITAL COURSE: The patient is status post chest CT, echocardiogram, chest x-ray and head CT, all of which proved negative for acute disease. The patient's chest CT did show some mild bronchitis pattern. The patient's headache had resolved within 24 hours of admission. She was tolerating by mouth well. She is status post wound care consult and wound care process has been started per those recommendations. The patient has been maintained on vancomycin IV for her methicillin-resistant Staphylococcus aureus (MRSA) positive culture. Blood pressures were lower than normal and her medications including amlodipine and hydrochlorothiazide were both held. On physical exam today, vital signs are stable. She is afebrile. HEENT: Neck is supple, without lymphadenopathy or jugular venous distention (JVD). Cardiovascular: Heart rate and rhythm are regular. Pulmonary: Lungs are clear. Abdomen: Soft. Nontender. Left axilla does show some drainage on Optifoam. The patient is status post ultrasound of the left axilla which just showed three areas with very small amount of fluid in the subcutaneous location of the left axilla. ASSESSMENT: 1. MRSA abscess to the left axilla. 2. Intractable migraine. 3. Chest pain. 4. Diabetes. 5. History of hypertension. PLAN: The patient will be discharged to home. Diet is carbohydrate consistent. Activity is as tolerated. She will followup with primary care provider (PCP) within the next 5-7 days. Wound care includes washing the area with wound cleanser daily, applying warm pack three times a day, and applying an Optifoam for drainage. MEDICATIONS: Linezolid 600 mg one tab by mouth twice a day for a full ten days, Tylenol 500 mg tablets two by mouth every 6 hours as needed for pain, Tylenol with codeine one tablet twice a day as needed pain. She should take no more than 3 grams of Tylenol daily. Amitriptyline 75 mg by mouth at bedtime. Vitamin D2 50,000 units by mouth weekly. Gabapentin 100 mg by mouth at bedtime. Levothyroxine sodium 75 mcg by mouth every a.m. Lisinopril 40 mg by mouth at bedtime. Zofran 4 mg ODT as needed nausea or vomiting. Zocor 80 mg by mouth at bedtime. Medications that were held include amlodipine and hydrochlorothiazide and the Bactrim was stopped. The patient is discharged in stable and satisfactory condition with no further questions at the time of discharge.
== END 2018-09-12 16:49 | disposition home or self-care (01) | DRG 383 ==
LOC: M PCU 11:53 → EEVIPCON 11:53
PROVIDERS: ADMIT Family Medicine; ATTEND Family Medicine
DX: L02.412 Cutaneous abscess of left axilla (principal); I12.9 Hypertensive chronic kidney disease with stage 1 through stage 4 chronic kidney disease, or unspecified chronic kidney disease; E11.9 Type 2 diabetes mellitus without complications; B95.62 Methicillin resistant Staphylococcus aureus infection as the cause of diseases classified elsewhere; E53.8 Deficiency of other specified B group vitamins; G43.911 Migraine, unspecified, intractable, with status migrainosus; E66.9 Obesity, unspecified; Z79.899 Other long term (current) drug therapy; Z79.82 Long term (current) use of aspirin; M51.36 Other intervertebral disc degeneration, lumbar region; G47.00 Insomnia, unspecified; E78.5 Hyperlipidemia, unspecified; E03.9 Hypothyroidism, unspecified; E55.9 Vitamin D deficiency, unspecified; N18.2 Chronic kidney disease, stage 2 (mild); M17.2 Bilateral post-traumatic osteoarthritis of knee

== ENCOUNTER → 2018-09-21 | Outpatient (REF) | payer OTHER ==
[~2018-09-21] MED LIST changes: +LINE1TAB6 PO; +ZOCO80TA PO
[2018-09-21 13:09] LABS: BASO % 0.7 % (0.0-1.0); EOS # 0.1 10^3/uL (0.0-0.50); EOS % 1.9 % (0.0-3.0); HEMATOCRIT 36.6 % (36.0-47.0); HEMOGLOBIN 11.8 g/dl (12.0-15.5); LYMPH # 1.5 10^3/uL (1.5-4.5); LYMPH % 34.2 % (24.0-44.0); MEAN CORPUSCULAR HEMOGLOBIN 29.4 pg (27.0-33.0); MEAN CORPUSCULAR HGB CONC 32.2 g/dl (32.0-36.5); MONO # 0.4 10^3/uL (0.0-0.8); MONO % 8.7 % (0.0-5.0); NEUTROPHILS # 2.3 10^3/uL (1.8-7.7); NEUTROPHILS % 54.3 % (36.0-66.0); PLATELET COUNT, AUTOMATED 378 10^3/uL (150-450); RED BLOOD COUNT 4.02 10^6/uL (4.00-5.40); WHITE BLOOD COUNT 4.3 10^3/uL (4.0-10.0)
[2018-09-21 13:23] LABS: ALBUMIN 3.1 GM/DL (3.2-5.2); ALT/SGPT 18 U/L (12-78); BILIRUBIN,TOTAL 0.2 MG/DL (0.2-1.0); BLOOD UREA NITROGEN 14 MG/DL (7-18); CALCIUM LEVEL 8.6 MG/DL (8.8-10.2); CARBON DIOXIDE LEVEL 28 MEQ/L (21-32); CHLORIDE LEVEL 99 MEQ/L (98-107); CREATININE FOR GFR 0.92 MG/DL (0.55-1.30); FERRITIN 86 NG/ML (8-252); FREE T4 1.19 NG/DL (0.76-1.46); GLOMERULAR FILTRATION RATE > 60.0 (>45); GLUCOSE, FASTING 98 MG/DL (70-100); NT-PRO BNP 522 PG/ML (<125); POTASSIUM SERUM 4.7 MEQ/L (3.5-5.1); SODIUM LEVEL 135 MEQ/L (136-145); TOTAL PROTEIN 7.1 GM/DL (6.4-8.2); VALPROIC ACID (DEPAKOTE) 108.6 UG/ML (50.0-100.0)
== END ==
LOC: M SFHCPLAZ 10:57
PROVIDERS: ATTEND Family Medicine
DX: G43.009 Migraine without aura, not intractable, without status migrainosus (principal); D50.9 Iron deficiency anemia, unspecified

== ENCOUNTER → 2018-10-12 | Outpatient (REF) | payer OTHER ==
[2018-10-12 16:07] LABS: ALBUMIN 3.7 GM/DL (3.2-5.2); BLOOD UREA NITROGEN 12 MG/DL (7-18); CALCIUM LEVEL 9.2 MG/DL (8.8-10.2); CARBON DIOXIDE LEVEL 28 MEQ/L (21-32); CHLORIDE LEVEL 103 MEQ/L (98-107); CREATININE FOR GFR 0.93 MG/DL (0.55-1.30); GLOMERULAR FILTRATION RATE > 60.0 (>45); GLUCOSE, FASTING 97 MG/DL (70-100); MAGNESIUM LEVEL 2.1 MG/DL (1.8-2.4); NT-PRO BNP 102 PG/ML (<125); PHOSPHORUS LEVEL 3.6 MG/DL (2.5-4.9); POTASSIUM SERUM 3.9 MEQ/L (3.5-5.1); SODIUM LEVEL 138 MEQ/L (136-145); VALPROIC ACID (DEPAKOTE) 3.1 UG/ML (50.0-100.0)
== END ==
LOC: M SFHCPLAZ 13:53
PROVIDERS: ATTEND Nurse Practitioner Family
DX: I50.32 Chronic diastolic (congestive) heart failure (principal)

== ENCOUNTER → 2018-10-23 | Outpatient (REF) | payer OTHER | LOC: M SFHCPLAZ 13:02 → EEVIPCON 13:02 | PROVIDERS: ATTEND Nurse Practitioner Family | DX: L08.9 Local infection of the skin and subcutaneous tissue, unspecified (principal) ==

== ENCOUNTER → 2018-12-05 | Outpatient (REF) | payer OTHER | LOC: M SFHCPLAZ 15:25 | PROVIDERS: ATTEND Nurse Practitioner Family | DX: L08.9 Local infection of the skin and subcutaneous tissue, unspecified (principal) ==

== ENCOUNTER → 2019-03-10 | Outpatient (CLI) | payer OTHER, SELFPAY ==
--- NOTE | 2019-03-10 17:05 | REP ---
PA and lateral chest: Comparison is 09/11/2018. The lung yang are clear. The cardiac size is normal. The mandy, mediastinum, and skeletal structures are unremarkable. Impression: Negative PA and lateral chest. There is no interval change. Electronically Signed by Dean Jerez MD 03/10/2019 04:57 P
== END ==
LOC: M LRY 16:45
PROVIDERS: ATTEND Nurse Practitioner Family
DX: R05 Cough (principal)

== ENCOUNTER → 2019-03-17 | Outpatient (REF) | payer OTHER | LOC: M SFHCLERA 17:37 | PROVIDERS: ATTEND Nurse Practitioner Family | DX: R06.02 Shortness of breath (principal) ==

== ENCOUNTER → 2019-03-17 | Outpatient (CLI) | payer MEDICAID, SELFPAY ==
--- NOTE | 2019-03-18 07:32 | REP ---
Clinical: Shortness of breath . Comparison: 09/11/2018, 03/10/2019 . Technique: PA and lateral. Findings: The mediastinum and cardiac silhouette are normal. The lung yang are clear and without acute consolidation, effusion, or pneumothorax. The skeletal structures are intact and normal. Impression: 1. No acute cardiopulmonary process. 2. No focal consolidation. Electronically Signed by Terence Lyn MD 03/17/2019 06:10 P
== END ==
LOC: M LRY 17:36
PROVIDERS: ATTEND Nurse Practitioner Family
DX: R06.02 Shortness of breath (principal)

== ENCOUNTER → 2019-11-13 | Outpatient (REF) | payer OTHER ==
[~2019-11-13] MED LIST changes: -AMLO10TA5 PO; +AMLO1TAB25 PO
== END ==
LOC: M LAB REF 19:45
PROVIDERS: ATTEND Physician Assistant
DX: L02.01 Cutaneous abscess of face (principal)

== ENCOUNTER → 2019-11-21 | Outpatient (REF) | payer MEDICAID ==
[2019-11-21 14:24] LABS: ALBUMIN 4.1 GM/DL (3.2-5.2); BILIRUBIN,TOTAL 0.3 MG/DL (0.2-1.0); CALCIUM LEVEL 9.5 MG/DL (8.8-10.2); CHOLESTEROL RISK RATIO 4.6 (<5); CREATININE FOR GFR 1.31 MG/DL (0.55-1.30); FREE T4 1.23 NG/DL (0.76-1.46); GLOMERULAR FILTRATION RATE 43.9 (>45); THYROID STIMULATING HORMONE 2.39 uIU/ML (0.358-3.740); TOTAL PROTEIN 8.2 GM/DL (6.4-8.2)
[2019-11-21 14:37] LABS: HEMOGLOBIN A1c 6.2 %
[2019-11-21 17:21] LABS: PTH INTACT 76.6 PG/ML (18.5-88.0)
== END ==
LOC: M SFHCPLAZ 12:03
PROVIDERS: ATTEND Family Medicine
DX: I10 Essential (primary) hypertension (principal); R73.01 Impaired fasting glucose; E78.5 Hyperlipidemia, unspecified; E55.9 Vitamin D deficiency, unspecified; E53.8 Deficiency of other specified B group vitamins

== ENCOUNTER → 2020-01-10 | Outpatient (CLI) | payer OTHER, MEDICAID ==
--- NOTE | 2020-01-10 16:01 | REP ---
INDICATION: OSTEOARTHRITIS OF BOTH KNEES COMPARISON: None TECHNIQUE: Four views of each knee excluding the sunrise views FINDINGS: Left knee: There is minimal medial compartmental marginal osteophytosis and mild medial compartmental narrowing. There is no fracture, dislocation, or subluxation. Right knee: There is prominent tricompartmental marginal osteophytosis with moderate medial compartmental narrowing and subchondral sclerosis. There is patellofemoral joint space narrowing. There is no acute fracture, dislocation, or subluxation. IMPRESSION: Bilateral chronic knee changes as described above. <Electronically signed by Spenser France > 01/10/20 [id number]
--- NOTE | 2020-01-10 16:05 | REP ---
INDICATION: OSTEOARTHRITIS OF BOTH KNEES COMPARISON: None TECHNIQUE: Standing AP bilateral FINDINGS: There is bilateral medial compartmental narrowing right greater than left. Please see the respective bilateral four view knee reports. IMPRESSION: Chronic changes as described above. <Electronically signed by Spenser France > 01/10/20 [id number]
== END ==
LOC: M WUC 15:04
PROVIDERS: ATTEND Family Medicine
DX: M17.0 Bilateral primary osteoarthritis of knee (principal)

== ENCOUNTER → 2020-01-13 | Outpatient (CLI) | payer OTHER, MEDICAID ==
[2020-01-13 16:24] LABS: BASO % 0.4 % (0.0-1.0); EOS # 0.3 10^3/uL (0.0-0.5); EOS % 3.7 % (0.0-3.0); HEMATOCRIT 39.1 % (36.0-47.0); HEMOGLOBIN 12.5 g/dl (12.0-15.5); LYMPH % 26.3 % (24.0-44.0); MEAN CORPUSCULAR HEMOGLOBIN 28.2 pg (27.0-33.0); MEAN CORPUSCULAR VOLUME 88.3 fl (80.0-96.0); MONO # 0.6 10^3/uL (0.0-0.8); MONO % 7.3 % (0.0-5.0); NEUTROPHILS # 4.7 10^3/uL (1.5-8.5); PLATELET COUNT, AUTOMATED 318 10^3/uL (150-450); RED BLOOD COUNT 4.43 10^6/uL (4.00-5.40); WHITE BLOOD COUNT 7.6 10^3/uL (4.0-10.0)
[2020-01-13 16:32] LABS: APPEARANCE, URINE HAZY (CLEAR); BACTERIA, URINE AUTO NEGATIVE (NEGATIVE); BILIRUBIN, URINE AUTO NEGATIVE (NEGATIVE); BLOOD, URINE BLOOD NEGATIVE (NEGATIVE); COLOR, URINE YELLOW (YELLOW); GLUCOSE, URINE (UA) AUTO NEGATIVE (NEGATIVE); KETONE, URINE AUTO NEGATIVE (NEGATIVE); LEUKOCYTE ESTERASE, URINE AUTO 1+ (NEGATIVE); NITRITE, URINE AUTO NEGATIVE (NEGATIVE); PROTEIN, URINE AUTO NEGATIVE (NEGATIVE); RBC, URINE AUTO 0 /HPF (0-3); SQUAMOUS EPITHELIAL CELL UR AU 5 /HPF (0-6); UROBILINOGEN, URINE AUTO 0.2 mg/dL (0.0-2.0); WBC, URINE AUTO 3 /HPF (0-3)
[2020-01-13 16:55] LABS: ALBUMIN 3.4 GM/DL (3.2-5.2); BILIRUBIN,TOTAL 0.2 MG/DL (0.2-1.0); CALCIUM LEVEL 8.5 MG/DL (8.8-10.2); CREATININE FOR GFR 1.1 MG/DL (0.55-1.30); GLOMERULAR FILTRATION RATE 53.8 (>45); POTASSIUM SERUM 3.6 MEQ/L (3.5-5.1); TOTAL PROTEIN 7.4 GM/DL (6.4-8.2)
[2020-01-13 17:01] LABS: CREATININE, URINE 81.3 MG/DL; MALB URINE SIEMENS 13.8 MG/L; MAU/CREAT RATIO 16.9 MCG/MG (0.0-30.0)
[2020-01-17 17:08] LABS: CODEINE CONFIRM 7878 ng/mL (Cutoff=100); CODEINE, URINE Positive (.); CREATININE, URINE 83.1 mg/dL (20.0-300.0); HYDROCODONE, URINE Negative (Cutoff=100); HYDROMORPHONE, URINE Negative (Cutoff=100); MORPHINE CONFIRM, URINE 1308 ng/mL (Cutoff=100); MORPHINE, URINE Positive (.); OPIATES, URINE Positive ng/mL (Cutoff=300)
== END ==
LOC: M WUC 11:13
PROVIDERS: ATTEND Family Medicine
DX: I10 Essential (primary) hypertension (principal); I50.32 Chronic diastolic (congestive) heart failure; G31.84 Mild cognitive impairment of uncertain or unknown etiology

== ENCOUNTER → 2020-02-12 | Outpatient (CLI) | payer OTHER ==
--- NOTE | 2020-02-12 09:58 | REP ---
INDICATION: MCI. Mild cognitive impairment. Patient reports memory issues. COMPARISON: Comparison CT study of the brain is from September 10, 2018.. TECHNIQUE: Axial and sagittal imaging planes are utilized for T1 and T2-weighted scans. Sequences include spin-echo, fast spin echo, FLAIR, and diffusion weighted sequences. FINDINGS: No bony calvarial lesion is seen. Craniocervical junction and upper cervical cord are normal in appearance. There is no MR evidence of significant paranasal sinus disease. No intraorbital abnormality is seen. Lateral, 3rd, and 4th ventricles are normal in size and position. There are several foci of T2 hyperintensity in the periventricular and subcortical white matter of the frontal and parietal lobes bilaterally consistent with microangiopathic chronic ischemic changes. There is a focus of T1 hypointensity in the periventricular white matter of the left frontal lobe which is felt to be a small old lacunar infarct. There is no evidence of intracranial mass. Diffusion-weighted scans show no evidence to suggest acute ischemic change. No hemorrhage is seen. No evidence of extra-axial fluid collection or midline shift. Study is otherwise unremarkable. IMPRESSION: Chronic small-vessel ischemic changes in the frontal and parietal lobes left more so than right. Old lacunar infarct periventricular white matter left frontal lobe. No acute intracranial abnormality.. <Electronically signed by Karan Silvestre > 02/12/20 [id number]
== END ==
LOC: M RAD 08:06
PROVIDERS: ATTEND Family Medicine
DX: G31.84 Mild cognitive impairment of uncertain or unknown etiology (principal)

== ENCOUNTER → 2020-03-30 | Outpatient (CLI) | payer OTHER ==
[~2020-03-30] MED LIST changes: +HYDR-3490 PO; -HYDR25TAB PO; -LISI40TA PO; +LISI40TA4 PO
[2020-03-30 13:19] LABS: C REACTIVE PROTEIN QUANTITATIV 0.88 MG/DL (0.00-0.30); CHOLESTEROL RISK RATIO 4.533 (<5)
[2020-03-30 13:24] LABS: PTH INTACT 88.1 PG/ML (18.5-88.0)
== END ==
LOC: M WUC 10:59
PROVIDERS: ATTEND Family Medicine
DX: R73.01 Impaired fasting glucose (principal); E55.9 Vitamin D deficiency, unspecified; M19.049 Primary osteoarthritis, unspecified hand

== ENCOUNTER → 2020-07-03 | Outpatient (CLI) | payer OTHER ==
[~2020-07-03] MED LIST changes: +BACTDSTA PO; -SULF1TAB93 PO
[2020-07-03 16:53] LABS: HEMOGLOBIN A1c 6.6 %
[2020-07-03 16:58] LABS: C REACTIVE PROTEIN QUANTITATIV 0.74 MG/DL (0.00-0.30); CHOLESTEROL RISK RATIO 3.435 (<5)
[2020-07-03 17:07] LABS: PTH INTACT 93.3 PG/ML (18.5-88.0); TOTAL 25(OH) VITAMIN D 42.3 NG/ML (30.0-100.0)
== END ==
LOC: M WUC 11:54
PROVIDERS: ATTEND Family Medicine
DX: R73.01 Impaired fasting glucose (principal); E55.9 Vitamin D deficiency, unspecified; M19.049 Primary osteoarthritis, unspecified hand

== ENCOUNTER → 2020-07-10 | Outpatient (CLI) | payer OTHER ==
--- NOTE | 2020-07-10 12:32 | REP ---
INDICATION: Z12.39 SCREENING MAMMO. COMPARISON: Multiple, however, there are no prior DBT images for comparison. TECHNIQUE: Digital screening mammography was carried out bilaterally in the CC and MLO projections using both 2D and 3D modalities and compared to the prior exams. By history, the patient has no complaints of a palpable breast abnormality or other significant breast complaints. FINDINGS: The breasts are unchanged in size and shape. There are no adolfo soft tissue densities or spiculated masses. There is no internal architectural distortion. In the right breast lower inner quadrant there is a subtle new grouping of calcifications. Other calcifications are also seen bilaterally, however, these are stable and benign. The [place] volumetric breast density pattern is b. IMPRESSION: BIRADS/ACR category 0 mammogram. Diagnostic digital magnified spot-compression views right breast calcifications as described above. This patient's Tyrer-Cuzick lifetime breast cancer risk assessment score is 9.9%. This mammogram was interpreted with the aid of an FDA-approved computer-aided detection system. The patient states she had a clinical breast exam in over a year. The patient letter being requested is M0 RECOMMENDATION: As above <Electronically signed by Spenser France > 07/10/20 [id number]
== END ==
LOC: M WHC 10:49
PROVIDERS: ATTEND Family Medicine
DX: Z12.31 Encounter for screening mammogram for malignant neoplasm of breast (principal); R92.1 Mammographic calcification found on diagnostic imaging of breast

== ENCOUNTER → 2020-07-31 | Outpatient (CLI) | payer OTHER ==
--- NOTE | 2020-07-31 13:09 | REP ---
INDICATION: R DIAG MAMMO/CALCIFICATION; ADDL VIEWS/RIGHT BREAST CALCIFICATIONS. COMPARISON: Comparison mammography is from March 24, 2014, July 05, 2016, and July 10, 2020. TECHNIQUE: Magnified focal spot-compression CC and MLO views of the right breast are obtained. A non magnified true mediolateral view is acquired and 3D tomography is utilized. Targeted right breast sonography is performed. This mammogram was interpreted with the aid of an FDA-approved computer-aided detection system. FINDINGS: Diagnostic mammography confirms the presence of a tight grouping of microcalcifications which are predominantly rounded in the inferior aspect the right breast at approximately the 5 o'clock position. These appear to be within the 3-4 mm diameter soft tissue nodule. There also is a few inspissated benign ductal calcifications which are unchanged. The breast parenchyma is predominantly fat replaced. The Volpara volumetric breast density pattern is a. Targeted ultrasound: Targeted right breast sonography is performed in the 4-6 o'clock region of the right breast. No cyst or solid mass lesion is observed. No acoustic shadowing or suspicious sonographic finding. IMPRESSION: BIRADS/ACR category 4 suspicious right breast mammographic findings.. Micro calcific grouping at approximately the 5 o'clock position with no sonographic correlate. This patient's Tyrer-Cuzick lifetime breast cancer risk assessment score is 9.9%. RECOMMENDATION: Stereotactic needle biopsy procedure recommended right breast with clip placement and post clip placement right breast mammography.. The patient letter being requested is M4. <Electronically signed by Karan Silvestre > 07/31/20 [id number]
== END ==
LOC: M WHC 10:28
PROVIDERS: ATTEND Family Medicine
DX: R92.0 Mammographic microcalcification found on diagnostic imaging of breast (principal)
CPT/HCPCS: 76642; 77065; G0279

== ENCOUNTER → 2020-08-20 | Outpatient (CLI) | payer OTHER ==
[~2020-08-20] MED LIST changes: +AMLO1TAB24 PO; +B-122500 PO; +ECOT81TA5 PO; +ROSU40TA4 PO; +TORS10TA3 PO
[2020-08-20 14:17] VITALS: BP 144/84
--- NOTE | 2020-08-20 14:24 | REP ---
INDICATION: R92.1 RT BREAST CALCIFICATION,POST STEREOTACTIC BIOPSY. Marker clip placement views. COMPARISON: Comparison mammography images are dated July 10, 2020 and July 31, 2020. TECHNIQUE: Craniocaudal and mediolateral views of the right breast are obtained. FINDINGS: Craniocaudal and mediolateral views of the right breast demonstrate that the micro calcific nodule appears to have been removed. In the needle biopsy marker clip is felt to be in good position, approximately 1 cm below the location where prior mammography showed the micro calcific target. No hematoma. IMPRESSION: Marker clip in good position. <Electronically signed by Karan Silvestre > 08/20/20 [id number]
--- NOTE | 2020-08-20 17:02 | REP ---
INDICATION: R92.1 RT BREAST CALCIFICATION,STEREOTACTIC BIOPSY. COMPARISON: None. TECHNIQUE: This procedure is performed by Zara Cabral [facility], under the direct supervision of Dr. Silvestre. The risks and benefits of the procedure were explained to the patient and informed consent was obtained both verbally and written. Directly prior to the start of the procedure, a formal timeout was done in the procedure room. The inferior to superior cranial caudal approach was utilized on the prone table. The right breast microcalcifications were localized using mammographic guidance. The skin was prepped and draped in a sterile fashion. Five ml of buffered lidocaine was used as a local anesthetic. FINDINGS: A 10 gauge mammotome vacuum assisted biopsy device was inserted and advanced into the breast lesion and 7 core biopsy samples were obtained. A marker clip shaped 1 was placed at the biopsy site. The patient tolerated the procedure well and there were no immediate complications. After the appropriate amount of monitored convalescence the patient was discharged from the department. IMPRESSION: Right breast stereotactic biopsy with micro clip placement. <Electronically signed by Zara Cabral > 08/20/20 [id number] <Electronically signed by Karan Silvestre > 08/20/20 [id number]
--- NOTE | 2020-08-20 17:11 | REP ---
INDICATION: R92.1 RT BREAST CALCIFICATION,STEREOTACTIC BIOPSY. COMPARISON: Comparison mammography July 31, 2020.. TECHNIQUE: Two specimen radiographs. Right breast biopsy specimens. FINDINGS: Specimen radiography demonstrates microcalcifications in a oval-shaped grouping in 1 of the removed specimens. There are 2 microcalcifications in the adjacent specimen. IMPRESSION: Specimen radiography shows microcalcifications from the target the grouping. <Electronically signed by Karan Silvestre > 08/20/20 [id number]
== END ==
LOC: M WHCPRO 06:41
PROVIDERS: ATTEND Physician Assistant Medical
DX: R92.1 Mammographic calcification found on diagnostic imaging of breast (principal)

== ENCOUNTER → 2020-11-03 | Outpatient (CLI) | payer OTHER ==
[2020-11-03 11:54] LABS: BASO % 0.6 % (0.0-1.0); EOS # 0.3 10^3/uL (0.0-0.5); EOS % 4.5 % (0.0-3.0); HEMATOCRIT 38.3 % (36.0-47.0); HEMOGLOBIN 12.3 g/dl (12.0-15.5); LYMPH # 2.7 10^3/uL (1.5-5.0); LYMPH % 37.6 % (24.0-44.0); MEAN CORPUSCULAR HGB CONC 32.1 g/dl (32.0-36.5); MONO # 0.6 10^3/uL (0.0-0.8); MONO % 8.9 % (2.0-8.0); NEUTROPHILS # 3.4 10^3/uL (1.5-8.5); NEUTROPHILS % 48.3 % (36.0-66.0); PLATELET COUNT, AUTOMATED 269 10^3/uL (150-450); WHITE BLOOD COUNT 7.1 10^3/uL (4.0-10.0)
[2020-11-03 12:10] LABS: HEMOGLOBIN A1c 6.3 %
[2020-11-03 12:32] LABS: ALBUMIN 3.6 GM/DL (3.2-5.2); BILIRUBIN,TOTAL 0.4 MG/DL (0.2-1.0); CALCIUM LEVEL 9.4 MG/DL (8.8-10.2); CREATININE FOR GFR 1.01 MG/DL (0.55-1.30); FREE T4 1.12 NG/DL (0.76-1.46); GLOMERULAR FILTRATION RATE 59.1 (>45); POTASSIUM SERUM 4.2 MEQ/L (3.5-5.1); THYROID STIMULATING HORMONE 3.43 uIU/ML (0.358-3.740); TOTAL PROTEIN 7.4 GM/DL (6.4-8.2)
== END ==
LOC: M WUC 09:56
PROVIDERS: ATTEND Family Medicine
DX: R73.01 Impaired fasting glucose (principal); D50.9 Iron deficiency anemia, unspecified; E53.8 Deficiency of other specified B group vitamins; I50.32 Chronic diastolic (congestive) heart failure; E03.9 Hypothyroidism, unspecified

== ENCOUNTER → 2020-12-22 | Outpatient (CLI) | payer OTHER | LOC: M PLALAB 11:53 | PROVIDERS: ATTEND Family Medicine | DX: Z13.71 Encounter for nonprocreative screening for genetic disease carrier status (principal); Z80.3 Family history of malignant neoplasm of breast ==

== ENCOUNTER → 2021-02-01 | Outpatient (CLI) | payer OTHER ==
[2021-02-01 15:43] LABS: ALBUMIN 3.5 GM/DL (3.2-5.2); ALT/SGPT 21 U/L (12-78); BILIRUBIN,TOTAL 0.1 MG/DL (0.2-1.0); BLOOD UREA NITROGEN 13 MG/DL (7-18); CALCIUM LEVEL 9.1 MG/DL (8.8-10.2); CARBON DIOXIDE LEVEL 31 MEQ/L (21-32); CHLORIDE LEVEL 104 MEQ/L (98-107); CREATININE FOR GFR 0.92 MG/DL (0.55-1.30); GLOMERULAR FILTRATION RATE > 60.0 (>45); GLUCOSE, FASTING 100 MG/DL (70-100); POTASSIUM SERUM 4.4 MEQ/L (3.5-5.1); SODIUM LEVEL 139 MEQ/L (136-145)
== END ==
LOC: M PLALAB 12:43
PROVIDERS: ATTEND Family Medicine
DX: R73.01 Impaired fasting glucose (principal)

== ENCOUNTER → 2021-02-11 | Outpatient (CLI) | payer OTHER ==
[~2021-02-11] MED LIST changes: +PROHANCE 279.3MG/ML 15ML VIAL As Ordered ONE; +PROHANCE 279.3MG/ML 5ML VIAL As Ordered ONE
== END ==
LOC: M RAD 13:17
PROVIDERS: ATTEND Family Medicine
DX: N60.91 Unspecified benign mammary dysplasia of right breast (principal)
CPT/HCPCS: 77049; A9576

== ENCOUNTER → 2021-03-11 | Outpatient (CLI) | payer OTHER ==
[~2021-03-11] MED LIST changes: -PROHANCE 279.3MG/ML 15ML VIAL As Ordered ONE; -PROHANCE 279.3MG/ML 5ML VIAL As Ordered ONE
[2021-03-11 16:14] LABS: ALBUMIN 3.7 GM/DL (3.2-5.2); ALT/SGPT 23 U/L (12-78); BILIRUBIN,TOTAL 0.2 MG/DL (0.2-1.0); BLOOD UREA NITROGEN 18 MG/DL (7-18); CALCIUM LEVEL 9.7 MG/DL (8.8-10.2); CARBON DIOXIDE LEVEL 31 MEQ/L (21-32); CHLORIDE LEVEL 101 MEQ/L (98-107); CREATININE FOR GFR 0.99 MG/DL (0.55-1.30); FREE T4 1.04 NG/DL (0.76-1.46); GLOMERULAR FILTRATION RATE > 60.0 (>45); GLUCOSE, FASTING 91 MG/DL (70-100); POTASSIUM SERUM 4.8 MEQ/L (3.5-5.1); SODIUM LEVEL 136 MEQ/L (136-145); TOTAL PROTEIN 7.5 GM/DL (6.4-8.2)
== END ==
LOC: M WUC 12:02
PROVIDERS: ATTEND Family Medicine
DX: E03.9 Hypothyroidism, unspecified (principal); R73.01 Impaired fasting glucose; E55.9 Vitamin D deficiency, unspecified; I50.32 Chronic diastolic (congestive) heart failure

== ENCOUNTER → 2021-03-19 | Outpatient (CLI) | payer OTHER | LOC: M PLAIMG 13:53 | PROVIDERS: ATTEND Family Medicine | DX: M47.814 Spondylosis without myelopathy or radiculopathy, thoracic region (principal); M48.14 Ankylosing hyperostosis [Forestier], thoracic region ==

== ENCOUNTER → 2021-08-05 | Outpatient (CLI) | payer OTHER ==
[~2021-08-05] MED LIST changes: -ACET1TAB16 PO; +ACET300T48 PO
[2021-08-05 16:20] LABS: BASO # 0.1 10^3/uL (0.0-0.2); BASO % 0.5 % (0.0-1.0); EOS # 0.5 10^3/uL (0.0-0.5); EOS % 5.2 % (0.0-3.0); HEMATOCRIT 39.7 % (36.0-47.0); HEMOGLOBIN 12.3 g/dl (12.0-15.5); LYMPH # 2.2 10^3/uL (1.5-5.0); LYMPH % 23.8 % (24.0-44.0); MEAN CORPUSCULAR HEMOGLOBIN 27.6 pg (27.0-33.0); MEAN CORPUSCULAR VOLUME 89.2 fl (80.0-96.0); MONO # 0.6 10^3/uL (0.0-0.8); MONO % 5.9 % (2.0-8.0); NEUTROPHILS % 64.2 % (36.0-66.0); PLATELET COUNT, AUTOMATED 279 10^3/uL (150-450); RED BLOOD COUNT 4.45 10^6/uL (4.00-5.40); WHITE BLOOD COUNT 9.3 10^3/uL (4.0-10.0)
[2021-08-05 17:12] LABS: ALT/SGPT 18 U/L (12-78); BILIRUBIN,TOTAL 0.3 MG/DL (0.2-1.0); BLOOD UREA NITROGEN 14 MG/DL (7-18); CARBON DIOXIDE LEVEL 30 MEQ/L (21-32); CHLORIDE LEVEL 106 MEQ/L (98-107); CHOLESTEROL LEVEL 118 MG/DL (<200); CHOLESTEROL RISK RATIO 2.269 (<5); CREATININE FOR GFR 0.92 MG/DL (0.55-1.30); FERRITIN 51 NG/ML (8-252); GLOMERULAR FILTRATION RATE > 60.0 (>45); GLUCOSE, FASTING 92 MG/DL (70-100); HDL CHOLESTEROL 52 MG/DL (>40); LDL CHOLESTEROL 43 MG/DL (<100); NON-HDL-C 66 MG/DL; NT-PRO BNP 63 PG/ML (<125); POTASSIUM SERUM 4.7 MEQ/L (3.5-5.1); SODIUM LEVEL 140 MEQ/L (136-145); THYROID STIMULATING HORMONE 0.333 uIU/ML (0.358-3.740); TOTAL PROTEIN 6.9 GM/DL (6.4-8.2); TRIGLYCERIDES LEVEL 115 MG/DL (<150)
[2021-08-05 17:27] LABS: HEMOGLOBIN A1c 5.8 %
[2021-08-05 19:12] LABS: FREE T4 1.12 NG/DL (0.76-1.46)
[2021-08-06 11:31] LABS: VITAMIN B12 LEVEL 361 PG/ML (247-911)
[2021-08-07 08:32] LABS: APOLIPOPROTEIN B/A-1 RATIO 0.4 ratio (0.0-0.6); INSULIN LEVEL 18.2 uIU/mL (2.6-24.9)
== END ==
LOC: M WUC 11:00
PROVIDERS: ATTEND Family Medicine
DX: E03.9 Hypothyroidism, unspecified (principal); E11.9 Type 2 diabetes mellitus without complications; E78.5 Hyperlipidemia, unspecified; E53.8 Deficiency of other specified B group vitamins

== ENCOUNTER → 2021-08-13 | Outpatient (CLI) | payer OTHER | LOC: M WUC 13:55 | PROVIDERS: ATTEND Family Medicine | DX: M72.2 Plantar fascial fibromatosis (principal) ==

== ENCOUNTER → 2021-09-08 | Outpatient (CLI) | payer OTHER | LOC: M WHC 10:46 | PROVIDERS: ATTEND Family Medicine | DX: Z12.31 Encounter for screening mammogram for malignant neoplasm of breast (principal) ==

== ENCOUNTER → 2022-01-10 | Outpatient (CLI) | payer OTHER ==
[2022-01-10 16:15] LABS: BASO % 0.6 % (0.0-1.0); EOS # 0.2 10^3/uL (0.0-0.5); HEMATOCRIT 41.3 % (36.0-47.0); LYMPH # 1.7 10^3/uL (1.5-5.0); MEAN CORPUSCULAR HEMOGLOBIN 27.8 pg (27.0-33.0); MEAN CORPUSCULAR HGB CONC 31.5 g/dl (32.0-36.5); MEAN CORPUSCULAR VOLUME 88.4 fl (80.0-96.0); MONO # 0.7 10^3/uL (0.0-0.8); MONO % 13.7 % (2.0-8.0); NEUTROPHILS # 2.6 10^3/uL (1.5-8.5); NEUTROPHILS % 49.5 % (36.0-66.0); PLATELET COUNT, AUTOMATED 302 10^3/uL (150-450); RED BLOOD COUNT 4.67 10^6/uL (4.00-5.40); WHITE BLOOD COUNT 5.2 10^3/uL (4.0-10.0)
[2022-01-10 17:56] LABS: ALBUMIN 3.8 G/DL (3.2-5.2); BLOOD UREA NITROGEN 8 MG/DL (9-23); CALCIUM LEVEL 8.7 MG/DL (8.3-10.6); CARBON DIOXIDE LEVEL 27 MMOL/L (20-31); CHLORIDE LEVEL 100 MMOL/L (98-107); GLOMERULAR FILTRATION RATE > 60.0 (>45); GLUCOSE, FASTING 108 MG/DL (74-106); PHOSPHORUS LEVEL 3.5 MG/DL (2.4-5.1); POTASSIUM SERUM 3.6 MMOL/L (3.5-5.1); PTH INTACT 63.4 PG/ML (18.5-88.0); SODIUM LEVEL 139 MMOL/L (136-145); TOTAL 25(OH) VITAMIN D 68.5 NG/ML (20.0-100.0); VITAMIN B12 LEVEL 555 PG/ML (211-911)
[2022-01-10 18:28] LABS: HEMOGLOBIN A1c 5.6 % (4.0-6.0)
== END ==
LOC: M WUC 13:55
PROVIDERS: ATTEND Family Medicine
DX: E55.9 Vitamin D deficiency, unspecified (principal); E11.9 Type 2 diabetes mellitus without complications; E53.8 Deficiency of other specified B group vitamins; M47.814 Spondylosis without myelopathy or radiculopathy, thoracic region

== ENCOUNTER → 2022-01-20 | Outpatient (CLI) | payer OTHER | LOC: M PLAIMG 14:24 | PROVIDERS: ATTEND Family Medicine | DX: M25.811 Other specified joint disorders, right shoulder (principal); M85.811 Other specified disorders of bone density and structure, right shoulder; M19.011 Primary osteoarthritis, right shoulder ==

== ENCOUNTER → 2022-06-07 | Outpatient (CLI) | payer OTHER ==
[2022-06-07 17:03] LABS: BASO # 0.1 10^3/uL (0.0-0.2); BASO % 0.6 % (0.0-1.0); EOS # 0.2 10^3/uL (0.0-0.5); HEMATOCRIT 40.6 % (36.0-47.0); HEMOGLOBIN 13.1 g/dl (12.0-15.5); LYMPH # 2.4 10^3/uL (1.5-5.0); LYMPH % 29.5 % (24.0-44.0); MEAN CORPUSCULAR HEMOGLOBIN 28.1 pg (27.0-33.0); MEAN CORPUSCULAR HGB CONC 32.3 g/dl (32.0-36.5); MEAN CORPUSCULAR VOLUME 87.1 fl (80.0-96.0); MONO # 0.4 10^3/uL (0.0-0.8); MONO % 5.3 % (2.0-8.0); NEUTROPHILS % 61.4 % (36.0-66.0); PLATELET COUNT, AUTOMATED 376 10^3/uL (150-450); RED BLOOD COUNT 4.66 10^6/uL (4.00-5.40); WHITE BLOOD COUNT 8.1 10^3/uL (4.0-10.0)
[2022-06-07 17:15] LABS: HEMOGLOBIN A1c 5.8 % (4.0-6.0)
[2022-06-07 17:24] LABS: CREATININE, URINE 37.4 MG/DL; FREE T4 1.21 NG/DL (0.89-1.76); MALB URINE SIEMENS < 3.0 MG/L; THYROID STIMULATING HORMONE 0.678 uIU/ML (0.55-4.78)
[2022-06-07 17:25] LABS: FERRITIN 29.3 NG/ML (7.3-270.7)
[2022-06-07 17:27] LABS: CHOLESTEROL RISK RATIO 2.63 (<5); LDL CHOLESTEROL 37.6 MG/DL (<100)
[2022-06-09 08:11] LABS: APOLIPOPROTEIN B/A-1 RATIO 0.5 ratio (0.0-0.6); INSULIN LEVEL 34.1 uIU/mL (2.6-24.9)
== END ==
LOC: M WUC 12:39
PROVIDERS: ATTEND Family Medicine
DX: D50.9 Iron deficiency anemia, unspecified (principal); E03.9 Hypothyroidism, unspecified; E11.9 Type 2 diabetes mellitus without complications

== ENCOUNTER → 2022-06-20 | Outpatient (REF) | payer OTHER | LOC: M SFHCPLAZ 14:37 | PROVIDERS: ATTEND Family Medicine | DX: Z53.9 Procedure and treatment not carried out, unspecified reason (principal) ==

== ENCOUNTER → 2022-07-11 | Outpatient (CLI) | payer OTHER ==
[2022-07-11 15:46] LABS: ALBUMIN 3.9 G/DL (3.2-5.2); BILIRUBIN,TOTAL 0.3 MG/DL (0.3-1.2); CALCIUM LEVEL 9.3 MG/DL (8.3-10.6); GLOMERULAR FILTRATION RATE 59.4 (>45); POTASSIUM SERUM 5.2 MMOL/L (3.5-5.1); TOTAL PROTEIN 6.8 G/DL (5.7-8.2)
[2022-07-11 15:54] LABS: BASO % 0.4 % (0.0-1.0); EOS # 0.3 10^3/uL (0.0-0.5); EOS % 2.9 % (0.0-3.0); HEMATOCRIT 38.8 % (36.0-47.0); HEMOGLOBIN 12.4 g/dl (12.0-15.5); LYMPH # 2.2 10^3/uL (1.5-5.0); LYMPH % 22.6 % (24.0-44.0); MEAN CORPUSCULAR HEMOGLOBIN 28.4 pg (27.0-33.0); MONO # 0.5 10^3/uL (0.0-0.8); MONO % 5.6 % (2.0-8.0); NEUTROPHILS # 6.6 10^3/uL (1.5-8.5); NEUTROPHILS % 68.1 % (36.0-66.0); PLATELET COUNT, AUTOMATED 343 10^3/uL (150-450); RED BLOOD COUNT 4.36 10^6/uL (4.00-5.40); WHITE BLOOD COUNT 9.6 10^3/uL (4.0-10.0)
[2022-07-11 15:56] LABS: HEMOGLOBIN A1c 5.8 % (4.0-6.0)
[2022-07-13 13:09] LABS: INSULIN LEVEL 21.6 uIU/mL (2.6-24.9); TISSUE TRANSGLUTAMINASE IgA <2 U/mL (0-3)
== END ==
LOC: M PLALAB 12:43
PROVIDERS: ATTEND Family Medicine
DX: I10 Essential (primary) hypertension (principal); E11.9 Type 2 diabetes mellitus without complications

== ENCOUNTER → 2022-07-28 | Outpatient (CLI) | payer OTHER ==
[~2022-07-28] MED LIST changes: +PROHANCE 279.3MG/ML 5ML VIAL ONE
== END ==
LOC: M PLAIMG 08:11
PROVIDERS: ATTEND Family Medicine
DX: N60.91 Unspecified benign mammary dysplasia of right breast (principal)
CPT/HCPCS: 77049; A9576

== ENCOUNTER → 2022-11-30 | Outpatient (CLI) | payer OTHER ==
[~2022-11-30] MED LIST changes: -PROHANCE 279.3MG/ML 5ML VIAL ONE
[2022-11-30 13:56] LABS: BASO # 0.1 10^3/uL (0.0-0.2); BASO % 0.7 % (0.0-1.0); EOS # 0.4 10^3/uL (0.0-0.5); EOS % 5.8 % (0.0-3.0); HEMATOCRIT 38.5 % (36.0-47.0); HEMOGLOBIN 12.3 g/dl (12.0-15.5); LYMPH # 2.5 10^3/uL (1.5-5.0); LYMPH % 36.6 % (24.0-44.0); MEAN CORPUSCULAR HGB CONC 31.9 g/dl (32.0-36.5); MEAN CORPUSCULAR VOLUME 87.5 fl (80.0-96.0); MONO # 0.6 10^3/uL (0.0-0.8); MONO % 8.3 % (2.0-8.0); NEUTROPHILS # 3.3 10^3/uL (1.5-8.5); NEUTROPHILS % 48.5 % (36.0-66.0); PLATELET COUNT, AUTOMATED 320 10^3/uL (150-450); WHITE BLOOD COUNT 6.9 10^3/uL (4.0-10.0)
[2022-11-30 14:29] LABS: VITAMIN B12 LEVEL 493 PG/ML (211-911)
[2022-11-30 14:39] LABS: ALBUMIN 3.9 G/DL (3.2-5.2); ALKALINE PHOSPHATASE 88 U/L (46-116); ALT/SGPT 13 U/L (7.0-40); AST/SGOT 18 U/L (<34); BILIRUBIN,TOTAL 0.3 MG/DL (0.3-1.2); BLOOD UREA NITROGEN 13 MG/DL (9-23); CALCIUM LEVEL 9.2 MG/DL (8.3-10.6); CARBON DIOXIDE LEVEL 30 MMOL/L (20-31); CHLORIDE LEVEL 101 MMOL/L (98-107); CREATININE FOR GFR 0.96 MG/DL (0.55-1.30); GLOMERULAR FILTRATION RATE > 60.0 (>45); GLUCOSE, FASTING 88 MG/DL (74-106); POTASSIUM SERUM 4.7 MMOL/L (3.5-5.1); SODIUM LEVEL 140 MMOL/L (136-145); TOTAL PROTEIN 7.2 G/DL (5.7-8.2)
[2022-11-30 14:57] LABS: HEMOGLOBIN A1c 5.6 % (4.0-6.0)
[2022-12-01 12:08] LABS: TISSUE TRANSGLUTAMINASE IgA <2 U/mL (0-3)
== END ==
LOC: M PLALAB 12:18
PROVIDERS: ATTEND Family Medicine
DX: E11.9 Type 2 diabetes mellitus without complications (principal); I10 Essential (primary) hypertension

== ENCOUNTER → 2022-12-09 | Outpatient (REF) | payer OTHER | LOC: M SFHCPLAZ 13:07 | PROVIDERS: ATTEND Family Medicine | DX: D50.9 Iron deficiency anemia, unspecified (principal); E11.9 Type 2 diabetes mellitus without complications; E03.9 Hypothyroidism, unspecified; E55.9 Vitamin D deficiency, unspecified; E78.5 Hyperlipidemia, unspecified; Z53.8 Procedure and treatment not carried out for other reasons ==

== ENCOUNTER → 2022-12-25 | Outpatient (REF) | payer OTHER | LOC: M LAB REF 20:47 | PROVIDERS: ATTEND Student in an Organized Health Care Education/Training Program | DX: R30.0 Dysuria (principal) ==

== ENCOUNTER → 2023-04-03 | Outpatient (CLI) | payer OTHER ==
[2023-04-03 16:49] LABS: BASO # 0.1 10^3/uL (0.0-0.2); BASO % 0.7 % (0.0-1.0); EOS # 0.4 10^3/uL (0.0-0.5); EOS % 4.7 % (0.0-3.0); HEMATOCRIT 39.3 % (36.0-47.0); HEMOGLOBIN 12.6 g/dl (12.0-15.5); LYMPH # 2.7 10^3/uL (1.5-5.0); LYMPH % 32.9 % (24.0-44.0); MEAN CORPUSCULAR HEMOGLOBIN 28.3 pg (27.0-33.0); MEAN CORPUSCULAR HGB CONC 32.1 g/dl (32.0-36.5); MEAN CORPUSCULAR VOLUME 88.1 fl (80.0-96.0); MONO # 0.5 10^3/uL (0.0-0.8); MONO % 6.4 % (2.0-8.0); NEUTROPHILS # 4.6 10^3/uL (1.5-8.5); NEUTROPHILS % 55.1 % (36.0-66.0); PLATELET COUNT, AUTOMATED 328 10^3/uL (150-450); RED BLOOD COUNT 4.46 10^6/uL (4.00-5.40); WHITE BLOOD COUNT 8.3 10^3/uL (4.0-10.0)
[2023-04-03 17:04] LABS: HEMOGLOBIN A1c 5.6 % (4.0-6.0)
[2023-04-03 17:21] LABS: FERRITIN 30.3 NG/ML (7.3-270.7)
[2023-04-03 17:23] LABS: ALBUMIN 3.8 G/DL (3.2-5.2); BILIRUBIN,TOTAL 0.4 MG/DL (0.3-1.2); CALCIUM LEVEL 9.4 MG/DL (8.3-10.6); CHOLESTEROL RISK RATIO 2.6 (<5); CREATININE FOR GFR 1.05 MG/DL (0.55-1.30); FREE T4 1.07 NG/DL (0.89-1.76); HDL CHOLESTEROL 39.1 MG/DL (>40); LDL CHOLESTEROL 37.3 MG/DL (<100); NON-HDL-C 62.9 MG/DL; POTASSIUM SERUM 3.8 MMOL/L (3.5-5.1); THYROID STIMULATING HORMONE 3.389 uIU/ML (0.55-4.78); TOTAL PROTEIN 7.1 G/DL (5.7-8.2)
[2023-04-03 17:24] LABS: TOTAL 25(OH) VITAMIN D 106.6 NG/ML (20.0-100.0)
[2023-04-03 17:38] LABS: PTH INTACT 71.6 PG/ML (18.5-88.0)
== END ==
LOC: M WUC 12:55
PROVIDERS: ATTEND Family Medicine
DX: D50.9 Iron deficiency anemia, unspecified (principal); E11.9 Type 2 diabetes mellitus without complications; E78.5 Hyperlipidemia, unspecified; E03.9 Hypothyroidism, unspecified; E55.9 Vitamin D deficiency, unspecified

== ENCOUNTER → 2023-04-11 | Outpatient (REF) | payer MEDICARE | LOC: M SFHCPLAZ 13:55 | PROVIDERS: ATTEND Family Medicine | DX: E11.9 Type 2 diabetes mellitus without complications (principal); E53.8 Deficiency of other specified B group vitamins; I10 Essential (primary) hypertension ==

== ENCOUNTER → 2023-04-14 | Outpatient (CLI) | payer MEDICARE, OTHER | LOC: M WHC 11:03 | PROVIDERS: ATTEND Family Medicine | DX: Z12.31 Encounter for screening mammogram for malignant neoplasm of breast (principal) ==

== ENCOUNTER → 2023-05-02 | Outpatient (CLI) | payer MEDICARE | LOC: M WHC 18:04 | PROVIDERS: ATTEND Family Medicine | DX: Z12.39 Encounter for other screening for malignant neoplasm of breast (principal) ==

== ENCOUNTER → 2023-08-15 | Outpatient (CLI) | payer MEDICARE ==
[~2023-08-15] MED LIST changes: +ONDA-282 PO; -ONDA4TAB6 PO; -ROSU40TA4 PO; +ROSU40TA63 PO
[2023-08-15 11:42] LABS: BASO % 0.4 % (0.0-1.0); EOS # 0.4 10^3/uL (0.0-0.5); EOS % 4.8 % (0.0-3.0); HEMATOCRIT 35.9 % (36.0-47.0); HEMOGLOBIN 11.7 g/dl (12.0-15.5); LYMPH # 2.6 10^3/uL (1.5-5.0); LYMPH % 32.3 % (24.0-44.0); MEAN CORPUSCULAR HEMOGLOBIN 29.1 pg (27.0-33.0); MEAN CORPUSCULAR HGB CONC 32.6 g/dl (32.0-36.5); MEAN CORPUSCULAR VOLUME 89.3 fl (80.0-96.0); MONO # 0.6 10^3/uL (0.0-0.8); MONO % 7.7 % (2.0-8.0); NEUTROPHILS # 4.3 10^3/uL (1.5-8.5); NEUTROPHILS % 54.4 % (36.0-66.0); PLATELET COUNT, AUTOMATED 306 10^3/uL (150-450); RED BLOOD COUNT 4.02 10^6/uL (4.00-5.40); WHITE BLOOD COUNT 7.9 10^3/uL (4.0-10.0)
[2023-08-15 12:15] LABS: CREATININE, URINE 183.3 MG/DL
[2023-08-15 12:16] LABS: MAU/CREAT RATIO 129.8 MCG/MG (0.0-30.0)
[2023-08-15 12:19] LABS: FERRITIN 24.4 NG/ML (7.3-270.7)
[2023-08-15 12:21] LABS: ALBUMIN 3.5 G/DL (3.2-5.2); BILIRUBIN,TOTAL 0.4 MG/DL (0.3-1.2); CALCIUM LEVEL 9.3 MG/DL (8.3-10.6); CREATININE FOR GFR 1.13 MG/DL (0.55-1.30); GLOMERULAR FILTRATION RATE 51.4 (>45); POTASSIUM SERUM 3.6 MMOL/L (3.5-5.1); TOTAL PROTEIN 6.4 G/DL (5.7-8.2)
[2023-08-15 12:23] LABS: HEMOGLOBIN A1c 5.5 % (4.0-6.0)
== END ==
LOC: M WUC 09:55
PROVIDERS: ATTEND Family Medicine
DX: E11.9 Type 2 diabetes mellitus without complications (principal); E53.8 Deficiency of other specified B group vitamins; I10 Essential (primary) hypertension

== ENCOUNTER → 2023-08-21 | Outpatient (REF) | payer MEDICARE | LOC: M SFHCPLAZ 14:28 | PROVIDERS: ATTEND Family Medicine | DX: E53.8 Deficiency of other specified B group vitamins (principal); E11.9 Type 2 diabetes mellitus without complications; E55.9 Vitamin D deficiency, unspecified; I11.0 Hypertensive heart disease with heart failure ==

== ENCOUNTER → 2023-12-08 | Outpatient (CLI) | payer MEDICARE, OTHER ==
[~2023-12-08] MED LIST changes: -ROSU40TA63 PO; +ROSU40TA81 PO
[2023-12-08 12:31] LABS: APPEARANCE, URINE CLEAR (CLEAR); BACTERIA, URINE AUTO NEGATIVE (NEGATIVE); BASO % 0.6 % (0.0-1.0); BILIRUBIN, URINE AUTO NEGATIVE (NEGATIVE); BLOOD, URINE BLOOD NEGATIVE (NEGATIVE); COLOR, URINE STRAW (YELLOW); EOS # 0.3 10^3/uL (0.0-0.5); GLUCOSE, URINE (UA) AUTO NEGATIVE (NEGATIVE); HEMATOCRIT 35.4 % (36.0-47.0); HEMOGLOBIN 11.5 g/dl (12.0-15.5); KETONE, URINE AUTO NEGATIVE (NEGATIVE); LEUKOCYTE ESTERASE, URINE AUTO NEGATIVE (NEGATIVE); LYMPH # 2.1 10^3/uL (1.5-5.0); LYMPH % 31.4 % (24.0-44.0); MEAN CORPUSCULAR HGB CONC 32.5 g/dl (32.0-36.5); MEAN CORPUSCULAR VOLUME 89.2 fl (80.0-96.0); MONO # 0.5 10^3/uL (0.0-0.8); MONO % 6.9 % (2.0-8.0); MUCUS, URINE SMALL (NEGATIVE); NEUTROPHILS # 3.8 10^3/uL (1.5-8.5); NITRITE, URINE AUTO NEGATIVE (NEGATIVE); PLATELET COUNT, AUTOMATED 309 10^3/uL (150-450); PROTEIN, URINE AUTO NEGATIVE (NEGATIVE); RBC, URINE AUTO 0 /HPF (0-3); RED BLOOD COUNT 3.97 10^6/uL (4.00-5.40); SPECIFIC GRAVITY URINE AUTO 1.009 (1.002-1.035); SQUAMOUS EPITHELIAL CELL UR AU 0 /HPF (0-6); UROBILINOGEN, URINE AUTO 0.2 mg/dL (0.0-2.0); WBC, URINE AUTO 0 /HPF (0-3); WHITE BLOOD COUNT 6.7 10^3/uL (4.0-10.0)
[2023-12-08 12:56] LABS: CREATININE, URINE 46.2 MG/DL; MAU/CREAT RATIO 21.6 MCG/MG (0.0-30.0)
[2023-12-08 13:00] LABS: THYROID STIMULATING HORMONE 2.497 uIU/ML (0.55-4.78); TOTAL 25(OH) VITAMIN D 142.9 NG/ML (20.0-100.0)
[2023-12-08 13:01] LABS: ALBUMIN 3.6 G/DL (3.2-5.2); BILIRUBIN,TOTAL 0.3 MG/DL (0.3-1.2); CALCIUM LEVEL 9.8 MG/DL (8.3-10.6); CHOLESTEROL RISK RATIO 2.4 (<5); CREATININE FOR GFR 1.28 MG/DL (0.55-1.30); FERRITIN 40.6 NG/ML (7.3-270.7); GLOMERULAR FILTRATION RATE 44.6 (>45); HDL CHOLESTEROL 40.8 MG/DL (>40); LDL CHOLESTEROL 39.4 MG/DL (<100); NON-HDL-C 57.2 MG/DL; POTASSIUM SERUM 3.9 MMOL/L (3.5-5.1); PTH INTACT 87.5 PG/ML (18.5-88.0)
[2023-12-08 13:02] LABS: FREE T4 1.42 NG/DL (0.89-1.76)
[2023-12-13 13:02] LABS: SOLUBLE TRANSFERRIN RECEPTOR 1.07 mg/L (0.76-1.76)
[2023-12-20 01:07] LABS: ALPHA 2-MACROGLOBULINS,QN 135 mg/dL (106-279); ALT (SGPT) P5P 8 U/L (6-29); APOLIPOPROTEIN A-1 146 mg/dL (101-198); BILIRUBIN, TOTAL 0.3 mg/dL (0.2-1.2); FIBROSIS SCORE 0.04; FIBROSIS STAGE NO FIBROSIS (F0); GGT 8 U/L (3-65); HAPTOGLOBIN 242 mg/dL (43-212); NECROINFLAM ACT GRADE NO ACTIVITY (A0); NECROINFLAM ACT SCORE 0.01
== END ==
LOC: M PLALAB 11:24
PROVIDERS: ATTEND Family Medicine
DX: I11.0 Hypertensive heart disease with heart failure (principal); E53.8 Deficiency of other specified B group vitamins; E11.9 Type 2 diabetes mellitus without complications; E55.9 Vitamin D deficiency, unspecified; K76.0 Fatty (change of) liver, not elsewhere classified; Z12.31 Encounter for screening mammogram for malignant neoplasm of breast

== ENCOUNTER → 2023-12-08 | Outpatient (CLI) | payer MEDICARE, OTHER | LOC: M PLAIMG 11:26 | DX: M51.372 Other intervertebral disc degeneration, lumbosacral region with discogenic back pain and lower extremity pain (principal) ==

== ENCOUNTER → 2024-03-28 | Outpatient (CLI) | payer MEDICARE | LOC: M PLAIMG 12:26 | PROVIDERS: ATTEND Pain Medicine Interventional Pain Medicine | DX: M47.26 Other spondylosis with radiculopathy, lumbar region (principal); M51.17 Intervertebral disc disorders with radiculopathy, lumbosacral region; M47.27 Other spondylosis with radiculopathy, lumbosacral region ==

== ENCOUNTER → 2024-05-21 | Outpatient (CLI) | payer MEDICARE ==
[2024-05-21 15:01] LABS: BASO % 0.4 % (0.0-1.0); EOS # 0.3 10^3/uL (0.0-0.5); EOS % 4.4 % (0.0-3.0); HEMATOCRIT 33.4 % (36.0-47.0); HEMOGLOBIN 10.5 g/dl (12.0-15.5); LYMPH # 2.3 10^3/uL (1.5-5.0); LYMPH % 32.9 % (24.0-44.0); MEAN CORPUSCULAR HEMOGLOBIN 29.1 pg (27.0-33.0); MEAN CORPUSCULAR HGB CONC 31.4 g/dl (32.0-36.5); MEAN CORPUSCULAR VOLUME 92.5 fl (80.0-96.0); MONO # 0.6 10^3/uL (0.0-0.8); NEUTROPHILS # 3.8 10^3/uL (1.5-8.5); NEUTROPHILS % 54.2 % (36.0-66.0); PLATELET COUNT, AUTOMATED 302 10^3/uL (150-450); RED BLOOD COUNT 3.61 10^6/uL (4.00-5.40)
[2024-05-21 15:21] LABS: ALBUMIN 3.9 G/DL (3.2-5.2); BILIRUBIN,TOTAL 0.3 MG/DL (0.3-1.2); CALCIUM LEVEL 9.2 MG/DL (8.3-10.6); CREATININE FOR GFR 1.29 MG/DL (0.55-1.30); GLOMERULAR FILTRATION RATE 45.8 (>45); POTASSIUM SERUM 4.3 MMOL/L (3.5-5.1); PTH INTACT 61.9 PG/ML (18.5-88.0); TOTAL PROTEIN 6.8 G/DL (5.7-8.2)
[2024-05-21 15:22] LABS: FERRITIN 27.4 NG/ML (7.3-270.7); THYROID STIMULATING HORMONE 0.778 uIU/ML (0.55-4.78); TOTAL 25(OH) VITAMIN D 63.2 NG/ML (20.0-100.0)
[2024-05-21 15:23] LABS: FREE T4 1.26 NG/DL (0.89-1.76)
== END ==
LOC: M WUC 12:22
PROVIDERS: ATTEND Family Medicine
DX: E53.8 Deficiency of other specified B group vitamins (principal); I11.0 Hypertensive heart disease with heart failure; E11.9 Type 2 diabetes mellitus without complications; E55.9 Vitamin D deficiency, unspecified; I50.32 Chronic diastolic (congestive) heart failure

== ENCOUNTER → 2024-09-06 | Outpatient (CLI) | payer MEDICARE, MEDICAID ==
[~2024-09-06] MED LIST changes: +ALBU8.5H INH; +CETI-24 PO; +CYCL-707 PO; +FERR325T19 PO; +GABA-1172 PO; +LEVO88TA3 PO; +LISI40TA10 PO; -LISI40TA4 PO; +METF750T36 PO; +SEMA1PEN2 SC; +TELM1TAB35 PO; +VITA200016 PO
[2024-09-06 15:52] LABS: BASO # 0.1 10^3/uL (0.0-0.2); BASO % 0.6 % (0.0-1.0); EOS # 0.8 10^3/uL (0.0-0.5); EOS % 7.2 % (0.0-3.0); LYMPH # 2.4 10^3/uL (1.5-5.0); LYMPH % 23.0 % (24.0-44.0); MONO # 0.7 10^3/uL (0.0-0.8); MONO % 6.5 % (2.0-8.0); NEUTROPHILS # 6.4 10^3/uL (1.5-8.5); NEUTROPHILS % 60.1 % (36.0-66.0); PLATELET COUNT, AUTOMATED 410 10^3/uL (150-450)
[2024-09-06 16:13] LABS: ESTIMATED AVERAGE GLUCOSE 120.0 MG/DL (60-110)
[2024-09-06 16:28] LABS: ALT/SGPT 64.0 U/L (7.0-40); AST/SGOT 40.0 U/L (<34); CALCIUM LEVEL 9.0 MG/DL (8.3-10.6); CARBON DIOXIDE LEVEL 28.0 MMOL/L (20-31); CHLORIDE LEVEL 102.0 MMOL/L (98-107); CHOLESTEROL LEVEL 97.0 MG/DL (<200); CHOLESTEROL RISK RATIO 3.61 (<5); CREATININE FOR GFR 1.27 MG/DL (0.55-1.30); GLOMERULAR FILTRATION RATE 46.6 (>45); LDL CHOLESTEROL 33.2 MG/DL (<100); NON-HDL-C 70.2 MG/DL; POTASSIUM SERUM 3.5 MMOL/L (3.5-5.1); SODIUM LEVEL 143.0 MMOL/L (136-145); TRIGLYCERIDES LEVEL 185.0 MG/DL (<150)
[2024-09-06 16:30] LABS: FREE T4 1.42 NG/DL (0.89-1.76); TOTAL 25(OH) VITAMIN D 70.9 NG/ML (20.0-100.0)
[2024-09-06 16:31] LABS: VITAMIN B12 LEVEL 1064.0 PG/ML (211-911)
[2024-09-06 16:32] LABS: PTH INTACT 48.1 PG/ML (18.5-88.0)
== END ==
LOC: M PLALAB 14:31
PROVIDERS: ATTEND Family Medicine
DX: E53.8 Deficiency of other specified B group vitamins (principal); I11.0 Hypertensive heart disease with heart failure; E03.9 Hypothyroidism, unspecified; E55.9 Vitamin D deficiency, unspecified; I50.32 Chronic diastolic (congestive) heart failure; E11.9 Type 2 diabetes mellitus without complications; E78.5 Hyperlipidemia, unspecified

== ENCOUNTER 2024-11-06 07:29 | Day surgery (SDC) | payer MEDICARE, MEDICAID ==
[~2024-11-06] VITALS: Ht 160 cm; Wt 92.4 kg
[2024-11-06] MEDS ORDERED: LIDOCAINE 2% 100 MG/5 ML SDV (FOR ANES.) As Ordered ONE (08:46)
[2024-11-06 09:07] VITALS: TEMP 99
[2024-11-06 09:33] VITALS: BP 147/80; O2SAT 98
== END 2024-11-06 09:45 | disposition home or self-care (01) ==
LOC: M OPP 07:29
PROVIDERS: ATTEND Internal Medicine Gastroenterology
DX: K57.30 Diverticulosis of large intestine without perforation or abscess without bleeding (principal); D50.9 Iron deficiency anemia, unspecified; Z79.82 Long term (current) use of aspirin; Z79.84 Long term (current) use of oral hypoglycemic drugs; Z79.85 Long-term (current) use of injectable non-insulin antidiabetic drugs; Z79.899 Other long term (current) drug therapy; J44.9 Chronic obstructive pulmonary disease, unspecified

== ENCOUNTER 2024-11-27 07:43 | Day surgery (SDC) | payer MEDICARE, MEDICAID ==
[~2024-11-27] VITALS: Ht 160 cm; Wt 91.2 kg
[2024-11-27] MEDS ORDERED: LIDOCAINE 2% 100 MG/5 ML SDV (FOR ANES.) As Ordered ONE (08:32)
[2024-11-27 09:29] VITALS: TEMP 98
[2024-11-27 09:45] VITALS: BP 116/64; O2SAT 95
== END 2024-11-27 09:57 | disposition home or self-care (01) ==
LOC: M OPP 07:43
PROVIDERS: ATTEND Internal Medicine Gastroenterology
DX: D12.3 Benign neoplasm of transverse colon (principal); K57.30 Diverticulosis of large intestine without perforation or abscess without bleeding; K64.0 First degree hemorrhoids; D50.9 Iron deficiency anemia, unspecified; Z79.82 Long term (current) use of aspirin; Z79.84 Long term (current) use of oral hypoglycemic drugs; Z79.85 Long-term (current) use of injectable non-insulin antidiabetic drugs; Z79.899 Other long term (current) drug therapy; J44.9 Chronic obstructive pulmonary disease, unspecified

== ENCOUNTER → 2025-01-16 | Outpatient (REF) | payer MEDICARE, MEDICAID ==
[~2025-01-16] MED LIST changes: -BACTDSTA PO; +SULF-8 PO
== END ==
LOC: M LAB REF 13:43
PROVIDERS: ATTEND Student in an Organized Health Care Education/Training Program
DX: R30.0 Dysuria (principal)